=== PATIENT | male | born 1980 | race Caucasian/White ===

== ENCOUNTER 2016-08-24 09:53 | Outpatient (CLI) | payer MEDICAID | END 2016-08-24 09:54 | disposition home or self-care (01) | DX: E11.9 Type 2 diabetes mellitus without complications (principal) ==

== ENCOUNTER 2017-10-23 09:11 | Outpatient (CLI) | payer MEDICAID ==
--- NOTE | 2017-10-24 08:28 | XRAY Report ---
Procedure Date: 10/23/2017 Accession Number: [id number] / [id number] Procedure: XRN - Toe(s) RT CPT Code: FULL RESULT: EXAM: Fourth Toe(s) RT DATE: 10/23/2017 9:35 AM CLINICAL HISTORY: JOINT PAIN COMPARISON: None TECHNIQUE: AP, lateral, oblique views of the right fourth toe FINDINGS: There is no evidence of acute fracture. The joint spaces are preserved. No foreign body is seen in the soft tissues. IMPRESSION: Normal right fourth toe.
--- NOTE | 2017-10-24 08:29 | XRAY Report ---
Procedure Date: 10/23/2017 Accession Number: [id number] / [id number] Procedure: XRN - Toe(s) RT CPT Code: FULL RESULT: EXAM: Fifth Toe(s) RT DATE: 10/23/2017 9:35 AM CLINICAL HISTORY: JOINT PAIN COMPARISON: None TECHNIQUE: AP, lateral, oblique views of the right fifth toe FINDINGS: There is no evidence of fracture or dislocation. The joint spaces are preserved. No radiopaque foreign body is seen in the soft tissues. IMPRESSION: Normal right fifth toe.
== END 2017-10-23 09:12 | disposition home or self-care (01) ==
LOC: DI.N 09:11
PROVIDERS: ATTEND Family Medicine
DX: M79.674 Pain in right toe(s) (principal)
CPT/HCPCS: 73660

== ENCOUNTER 2018-04-22 13:37 | Outpatient (CLI) | payer MEDICAID | END 2018-04-22 13:38 | disposition critical access hospital (66) | LOC: EMS 13:37 | PROVIDERS: ATTEND Surgery | DX: R73.09 Other abnormal glucose (principal); R09.89 Other specified symptoms and signs involving the circulatory and respiratory systems; R45.1 Restlessness and agitation | CPT/HCPCS: A0425; A0427 ==

== ENCOUNTER 2018-04-22 14:13 | Inpatient (IN) | payer MEDICAID ==
[2018-04-22] MEDS ORDERED: INSULIN REGULAR HUMAN 100 UNIT/1 ML 10 ML MDV IVP STA (14:35)
[2018-04-22] MEDS ORDERED: INSULIN REGULAR HUMAN 100 UNIT in SODIUM CHLORIDE 0.9% 100ML 99 ML IV STA (14:35)
[2018-04-22 14:37] LABS: BASOPHILS # (AUTO) 0.2 10^3/uL (0.0-0.1); BASOPHILS % (AUTO) 1.8 %; HGB - HEMOGLOBIN 15.4 g/dL (14.0-18.0); LYMPHOCYTES # (AUTO) 0.6 10^3/uL (1.5-3.5); LYMPHOCYTES % (AUTO) 4.7 %; MEAN CORPUSCULAR HEMOGLOBIN 28.7 pg (27.0-31.0); MEAN CORPUSCULAR HGB CONC 31.3 g/dL (32.0-36.0); MEAN CORPUSCULAR VOLUME 91.5 fL (80.0-94.0); MEAN PLATELET VOLUME 8.9 fL (7.4-11.4); MONOCYTES # (AUTO) 0.9 10^3/uL (0.0-1.0); MONOCYTES % (AUTO) 6.6 %; NEUTROPHILS # (AUTO) 11.8 10^3/uL (1.5-6.6); NEUTROPHILS % (AUTO) 86.9 %; PLT - PLATELET COUNT 293 10^3/uL (130-450); RED BLOOD COUNT 5.38 10^6/uL (4.70-6.10); RED CELL DISTRIBUTION WIDTH 14.8 % (12.0-15.0); WHITE BLOOD COUNT 13.6 x10^3/uL (4.8-10.8)
--- NOTE | 2018-04-22 14:54 | ED Physician Documentation ---
History of Present Illness - Stated complaint Stated Complaint: CONFUSED - Chief complaint Chief Complaint: Abd Pain - History obtained from History obtained from: Patient - History of Present Illness Timing: How many days ago (3) - Additonal information Additional information: 37-year-old diabetic male has developed nausea vomiting abdominal pain about 3 days ago. He has not been able to eat or drink much of anything and he has become confused. He comes into the emergency department breathing rapidly and with extremely dry mucous membranes. He has been mostly noncompliant with his diabetic regimen and stopped taking insulin about 1 year ago. He has been lackluster on checking his blood sugar and cannot tell me the last check he did. He does state that he has been taking his Glucophage and metformin. He has not seen his doctor in more than 1 year. He does not know what type of diabetes he has. He believes he has lost weight in the past several years. Review of Systems Constitutional: reports: Fatigue, Weight Loss. denies: Fever, Chills Eyes: denies: Decreased vision Ears: denies: Ear pain Nose: denies: Rhinorrhea / runny nose, Congestion Throat: denies: Sore throat Cardiac: denies: Chest pain / pressure, Palpitations Respiratory: reports: Dyspnea. denies: Cough, Hemoptysis, Wheezing GI: reports: Abdominal Pain, Nausea, Vomiting : denies: Dysuria, Frequency Skin: denies: Rash Musculoskeletal: denies: Neck pain, Back pain, Extremity pain PD PAST MEDICAL HISTORY - Past Medical History Cardiovascular: None Respiratory: Asthma Neuro: None Endocrine/Autoimmune: Type 2 diabetes GI: None : None HEENT: None Psych: Anxiety Musculoskeletal: Other - Present Medications Home Medications: Ambulatory Orders Medication Instructions Recorded Confirmed metFORMIN [Glucophage] 0 tab PO 04/22/18 - Allergies Allergies/Adverse Reactions: Allergies Allergy/AdvReac Type Severity Reaction Status Date / Time peanut Allergy Anaphylaxis Verified 04/22/18 14:25 - Social History Does the pt smoke?: No Smoking Status: Never smoker Does the pt drink ETOH?: No Does the pt have substance abuse?: No - Immunizations Immunizations are current?: Yes - POLST Patient has POLST: No PD ED PE NORMAL - Vitals Vital signs reviewed: Yes (hypertensive ) - General General: Well developed/nourished, Other (37 y/o thin pale male with cushmal breathing can barely keep his eyes open and answers questions appropriately but incompletely. ) - HEENT HEENT: Atraumatic, PERRL, EOMI, Other (The right TM is obscured by cerumen the left is erythematous with rounding of the landmarks. The mucous membranes are extremely dry/parched and there is blood on the gums and soft pallet. There is a broken right upper molar. ) - Neck Neck: Supple, no meningeal sign, No bony TTP - Cardiac Cardiac: RRR, No murmur - Respiratory Respiratory: Clear bilaterally, Other (tachypneic at rest ) - Abdomen Abdomen: Soft, Non tender, Other (thin ) - Back Back: No CVA TTP, No spinal TTP - Derm Derm: Normal color, Warm and dry, No rash - Extremities Extremities: No deformity, No edema - Neuro Neuro: Alert and oriented X 3, student dean 2-12 intact, No motor deficit, No sensory deficit, Normal speech Eye Opening: Spontaneous Motor: Obeys Commands Verbal: Oriented GCS Score: 15 - Psych Psych: Other (mood is withdrawn and the affect is flat) Results - Vitals Vitals: Vital Signs - 24 hr 04/22/18 04/22/18 04/22/18 14:19 15:05 15:47 Temperature 36.4 C L Heart Rate 93 96 97 Respiratory 22 18 25 H Rate Blood Pressure 155/88 H 159/93 H 141/95 H O2 Saturation 100 100 100 Oxygen O2 Source Room air - Labs Labs: Laboratory Tests 04/22/18 04/22/18 04/22/18 14:30 14:30 14:30 WBC 13.6 H RBC 5.38 Hgb 15.4 Hct 49.2 MCV 91.5 MCH 28.7 MCHC 31.3 L RDW 14.8 Plt Count 293 MPV 8.9 Neut # (Auto) 11.8 H Lymph # (Auto) 0.6 L [place] # (Auto) 0.9 Eos # (Auto) 0.0 Baso # (Auto) 0.2 H Absolute Nucleated RBC 0.00 Band Neuts % (Manual) Not Reportable Abnorm Lymph % (Manual) Not Reportable Nucleated RBC % 0.0 Neutrophils # (Manual) Not Reportable Lymphocytes # (Manual) Not Reportable Monocytes # (Manual) Not Reportable Eosinophils # (Manual) Not Reportable Basophils # (Manual) Not Reportable Differential Comment MANUAL=AUTO DIFF VBG pH VBG pCO2 VBG pO2 VBG HCO3 VBG Total CO2 VBG O2 Saturation VBG Base Excess Sodium 127 L Potassium 4.0 Chloride 103 Carbon Dioxide < 6 L* Anion Gap 18.0 H BUN 17 Creatinine 1.1 Estimated GFR (MDRD) 75 L Glucose 413 H Calcium 8.4 L Total Bilirubin 1.9 H AST 16 ALT 25 Alkaline Phosphatase 160 H Total Protein 7.4 Albumin 4.3 Globulin 3.1 Albumin/Globulin Ratio 1.4 Lipase 23 Serum Ketones MODERATE H 04/22/18 15:04 WBC RBC Hgb Hct MCV MCH MCHC RDW Plt Count MPV Neut # (Auto) Lymph # (Auto) [place] # (Auto) Eos # (Auto) Baso # (Auto) Absolute Nucleated RBC Band Neuts % (Manual) Abnorm Lymph % (Manual) Nucleated RBC % Neutrophils # (Manual) Lymphocytes # (Manual) Monocytes # (Manual) Eosinophils # (Manual) Basophils # (Manual) Differential Comment VBG pH 6.809 L VBG pCO2 19.7 L VBG pO2 46.4 VBG HCO3 3.1 L VBG Total CO2 3.7 L VBG O2 Saturation 77.8 VBG Base Excess -31.0 L Sodium Potassium Chloride Carbon Dioxide Anion Gap BUN Creatinine Estimated GFR (MDRD) Glucose Calcium Total Bilirubin AST ALT Alkaline Phosphatase Total Protein Albumin Globulin Albumin/Globulin Ratio Lipase Serum Ketones Procedures - IVC sono (time) 1450 Bedside IVC sono: IVC measures (cm) (0.93 after one liter), IVC collapsed c insp (cm) (complete), Dehydration (est 2 liter deficit remaining after one liter in.) PD MEDICAL DECISION MAKING - ED course Complexity details: reviewed old records, reviewed results, re-evaluated patient, considered differential, d/w patient ED course: 37 y/o male diabetic with cushmal breathing, significant dehydration and confusion appears to be in DKA on initial evaluation. IV saline is continued and he is administered IV insulin and placed on an insulin drip. He has some improvement in his breathing with fluid. He appears to be in DKA on his labs and the hospitalist is contacted for admission . Departure - Departure Disposition: 66 [facility] DC/Xfer Clinical Impression: Diabetic ketoacidosis Qualifiers: Diabetes mellitus type: other specified (including TANNER) Diabetes mellitus complication detail: without coma Qualified Code(s): E13.10 - Other specified diabetes mellitus with ketoacidosis without coma Otitis media Qualifiers: Otitis media type: suppurative Chronicity: acute Laterality: left Recurrence: not specified as recurrent Spontaneous tympanic membrane rupture: without spontaneous rupture Qualified Code(s): H66.002 - Acute suppurative otitis media without spontaneous rupture of ear drum, left ear
[2018-04-22 14:59] LABS: DIFFERENTIAL COMMENT MANUAL=AUTO DIFF
[2018-04-22 15:14] LABS: VBG PCO2 19.7 mmHg (41-51); VBG PH 6.809 (7.31-7.41); VBG PO2 46.4 mmHg (25-47); VBG TOTAL CO2 3.7 mmol/L (24-29)
[2018-04-22] MEDS ORDERED: SODIUM CHLORIDE 0.9% 1,000 ML IV ONE ×3 (15:15→15:52)
[2018-04-22 15:50] LABS: ALBUMIN 4.3 g/dL (3.2-5.5); ALBUMIN/GLOBULIN RATIO 1.4 (1.0-2.2); ALKALINE PHOSPHATASE 160 IU/L (42-121); ALT ALANINE AMINOTRANSFERASE 25 IU/L (10-60); AST ASPARTATE AMINOTRANSFERASE 16 IU/L (10-42); BILIRUBIN,TOTAL 1.9 mg/dL (0.2-1.0); BUN - BLOOD UREA NITROGEN 17 mg/dL (6-20); CALCIUM 8.4 mg/dL (8.5-10.3); CHLORIDE 103 mmol/L (101-111); CREATININE 1.1 mg/dL (0.6-1.2); GFR - MDRD 75 (>89); GLUCOSE 413 mg/dL (70-100); LIPASE 23 U/L (22-51); SODIUM 127 mmol/L (135-145); TOTAL PROTEIN 7.4 g/dL (6.7-8.2)
[2018-04-22 15:51] LABS: CARBON DIOXIDE - CO2 < 6 mmol/L (21-32)
[2018-04-22] MEDS ORDERED: cefTRIAXone 1 GM in SODIUM CHLORIDE 0.9% MINIBAG 100 ML IV STA (15:55)
[2018-04-22] MEDS ORDERED: SODIUM CHLORIDE 0.9% 100ML 100 ML IV ONE (16:23)
[2018-04-22] MEDS ORDERED: HYDROmorphone 0.5 MG/0.5 ML SYRINGE IVP PRN (17:45)
[2018-04-22] MEDS ORDERED: SODIUM CHLORIDE FLUSH 0.9% 10 ML SYRINGE IVP PRN (17:45)
[2018-04-22] MEDS ORDERED: PROCHLORPERAZINE 10 MG/2 ML VIAL IVP PRN (17:45)
[2018-04-22] MEDS ORDERED: INSULIN REGULAR HUMAN 100 UNIT in SODIUM CHLORIDE 0.9% 100ML 99 ML IV SCH (18:00)
[2018-04-22 18:21] LABS: BILIRUBIN,URINE NEGATIVE (NEGATIVE); GLUCOSE, URINE (UA) >=1000 mg/dL (NEGATIVE); KETONES,URINE (UA) >=80 mg/dL (NEGATIVE); LEUKOCYTE ESTERASE, URINE NEGATIVE (NEGATIVE); NITRITE,URINE NEGATIVE (NEGATIVE); OCCULT BLOOD,URINE SMALL (NEGATIVE); PROTEIN,URINE 30 mg/dL (NEGATIVE); UROBILINOGEN,URINE 0.2 (NORMAL) E.U./dL (NORMAL)
[2018-04-22 18:29] LABS: BACTERIA,URINE None Seen /HPF (None Seen); CASTS, URINE 3-5 Granular Casts /LPF; CLARITY,URINE CLEAR (CLEAR); RBC,URINE 0-5 /HPF (0-5); SQUAMOUS EPITHELIAL CELL,UR RARE Squamous (<= Few)
[2018-04-22 18:37] LABS: KETONES, SERUM (ACETEST) MODERATE (NEGATIVE)
[2018-04-22 18:38] LABS: BUN - BLOOD UREA NITROGEN 17 mg/dL (6-20); CALCIUM 7.2 mg/dL (8.5-10.3); CHLORIDE 107 mmol/L (101-111); CREATININE 0.9 mg/dL (0.6-1.2); GFR - MDRD 94 (>89); GLUCOSE 250 mg/dL (70-100); MAGNESIUM 1.5 mg/dL (1.7-2.8); SODIUM 127 mmol/L (135-145)
[2018-04-22 18:39] LABS: VBG BASE EXCESS -27.1 mmol/L (-2 - +2); VBG PCO2 16.8 mmHg (41-51); VBG PH 6.95 (7.31-7.41); VBG PO2 67.7 mmHg (25-47); VBG TOTAL CO2 4.1 mmol/L (24-29)
[2018-04-22 18:40] LABS: CARBON DIOXIDE - CO2 < 6 mmol/L (21-32)
[2018-04-22 19:03] LABS: LDL CHOLESTEROL,DIRECT 165 mg/dL
[2018-04-22 20:23] LABS: BUN - BLOOD UREA NITROGEN 16 mg/dL (6-20); CALCIUM 7.5 mg/dL (8.5-10.3); CARBON DIOXIDE - CO2 < 6 mmol/L (21-32); CHLORIDE 107 mmol/L (101-111); GFR - MDRD 84 (>89); GLUCOSE 219 mg/dL (70-100); MAGNESIUM 1.6 mg/dL (1.7-2.8); SODIUM 128 mmol/L (135-145)
[2018-04-22 20:26] LABS: KETONES, SERUM (ACETEST) MODERATE (NEGATIVE)
[2018-04-22] MEDS ORDERED: INSULIN GLARGINE 300 UNIT/3 ML PEN SUBQ SCH (21:06)
[2018-04-22 21:38] LABS: HB2 TOTAL 16.7 g/dL; HEMOGLOBIN A1C 2.88 g/dL; HEMOGLOBIN A1C % 17.9 % (4.6-6.2)
[2018-04-22] MEDS: SODIUM CHLORIDE FLUSH 0.9% 10 ML SYRINGE IVP SCH (21:50)
[2018-04-22] MEDS: AMOX/CLAV 875 MG/125 MG TABLET PO SCH (21:50)
[2018-04-22] MEDS: PANTOPRAZOLE 40 MG VIAL IVP SCH (21:50)
[2018-04-22] MEDS: SODIUM CHLORIDE 0.9% 1,000 ML IV SCH (21:50)
[2018-04-22 22:04] LABS: KETONES, SERUM (ACETEST) SMALL (NEGATIVE)
[2018-04-22 22:16] LABS: BUN - BLOOD UREA NITROGEN 14 mg/dL (6-20); CALCIUM 7.9 mg/dL (8.5-10.3); CHLORIDE 109 mmol/L (101-111); CREATININE 0.9 mg/dL (0.6-1.2); GFR - MDRD 94 (>89); GLUCOSE 174 mg/dL (70-100); MAGNESIUM 1.4 mg/dL (1.7-2.8); SODIUM 130 mmol/L (135-145)
--- NOTE | 2018-04-22 22:17 | HISTORY & PHYSICAL EXAMINATION ---
DATE OF SERVICE: 04/22/2018 Physician: Kriss Corado MD HISTORY OF PRESENT ILLNESS: This is a 37-year-old white male with a history of diabetes, he does not know which type, he has been on metformin and approximately a year ago stopped using insulin. He has not seen his doctor in a year. He does not do routine fingerstick glucose checks. The patient presented with a several day history of fatigue, shortness of breath with rapid respirations, and stated that he was nauseated and vomiting, has been losing weight and has poor appetite. He was found to be in DKA on workup in the ER. PAST MEDICAL HISTORY: Diabetes, noncompliance to medication treatment. REVIEW OF SYSTEMS: A comprehensive review of systems was performed and the pertinent positives are in the HPI, the rest are negative. FAMILY HISTORY: No inherited diseases. SOCIAL HISTORY: The patient is a nonsmoker, who never smoked, does not drink alcohol and denies any illicit drug use. MEDICATIONS: Only Metformin, unknown dose b.i.d. ALLERGIES: PEANUTS. PHYSICAL EXAMINATION GENERAL: Lethargic appearing white male, he has significant Kussmaul respirations consistent with his DKA. VITAL SIGNS: Blood pressure 150/90, heart rate 103 and sinus tachycardia, respiratory rate 25, room air saturation 100%. HEENT: Reveals redness of the left tympanic membrane, very dry oral mucosa, cracked lips, poor dentition, dried blood on his lips and palate. NECK: Supple with no JVD or carotid bruits. LUNGS: Clear. HEART: Heart sounds are normal. No murmur, but tachycardic. ABDOMEN: Soft, nontender. No organomegaly. Decreased bowel sounds. No guarding or rebound. EXTREMITIES: No edema. No clubbing or cyanosis. No rash, mild skin tenting. NEUROLOGIC: He is lethargic, but grossly intact. No focal findings. LABORATORY DATA: Sodium 127, potassium 4.0, BUN 17, creatinine 1.1, anion gap is 18, glucose 413, pH is 6.8. Normal AST and ALT, bilirubin 1.9, lipase normal. White blood count 30.6 with a left shift, hemoglobin 15.4, platelet count normal at 293. His serum labs show moderate serum ketones. Urinalysis has high specific gravity of greater than 1.03 with high protein, high glucose, high ketones, rare white cells and no bacteria. No imaging was done. No EKG was done. IMPRESSION/DIAGNOSES 1. Diabetic ketoacidosis. 2. Left-sided otitis media. 3. Dehydration. 4. Noncompliance with medications. PLAN: Admit patient to the ICU on telemetry. Begin a DKA bundle including aggressive IV hydration, IV insulin drip, titrating this with close lab draws and fingerstick checks. Use antiemetics if needed. Start with a clear liquid diet and advance as tolerated. The patient will need diabetic teaching and arrangements for followup with a PCP. Treat his otitis media with antibiotics; Ceftriaxone was given in the ER x1, we will start Augmentin since it has good bioavailability, this was checked with the pharmacist here. CODE STATUS: FULL CODE. DEEP VENOUS THROMBOSIS PROPHYLAXIS: SCDs. ATTESTATION: The patient is expected to be discharged or transferred to another facility within 96 hours: Yes. cc: Jordan Hadley MD TD: 04/22/2018 19:48 MTDD
[2018-04-22 22:19] LABS: CARBON DIOXIDE - CO2 6 mmol/L (21-32)
[2018-04-23] MEDS: SODIUM CHLORIDE 0.9% 1,000 ML IV SCH ×2 (01:59→05:57)
[2018-04-23 02:11] LABS: MUDS CUTOFF CONCENTRATIONS CUTOFF CONC BELOW:
[2018-04-23 02:25] LABS: AMPHETAMINE SCREEN,URINE NEGATIVE (NEGATIVE); BENZODIAZEPINES SCREEN, URINE NEGATIVE (NEGATIVE); COCAINE SCREEN URINE NEGATIVE (NEGATIVE); METHADONE SCREEN, URINE NEGATIVE (NEGATIVE); METHAMPHETAMINES SCREEN, URINE NEGATIVE (NEGATIVE); OPIATE SCREEN, URINE NEGATIVE (NEGATIVE); OXYCODONE SCREEN, URINE NEGATIVE (NEGATIVE); PROPOXYPHENE SCREEN, URINE NEGATIVE (NEGATIVE); TRICYCLIC ANTIDEPRESSANT,URINE NEGATIVE (NEGATIVE)
[2018-04-23 04:06] LABS: BASOPHILS # (AUTO) 0.1 10^3/uL (0.0-0.1); BASOPHILS % (AUTO) 0.8 %; HGB - HEMOGLOBIN 13.1 g/dL (14.0-18.0); LYMPHOCYTES # (AUTO) 0.6 10^3/uL (1.5-3.5); LYMPHOCYTES % (AUTO) 6.8 %; MEAN CORPUSCULAR HEMOGLOBIN 28.2 pg (27.0-31.0); MEAN CORPUSCULAR HGB CONC 32.6 g/dL (32.0-36.0); MEAN CORPUSCULAR VOLUME 86.6 fL (80.0-94.0); MEAN PLATELET VOLUME 8.2 fL (7.4-11.4); MONOCYTES # (AUTO) 0.8 10^3/uL (0.0-1.0); MONOCYTES % (AUTO) 9.6 %; NEUTROPHILS % (AUTO) 82.8 %; PLT - PLATELET COUNT 238 10^3/uL (130-450); RED BLOOD COUNT 4.65 10^6/uL (4.70-6.10); RED CELL DISTRIBUTION WIDTH 14.1 % (12.0-15.0); WHITE BLOOD COUNT 8.5 x10^3/uL (4.8-10.8)
[2018-04-23 04:19] LABS: CALCIUM 7.5 mg/dL (8.5-10.3); CREATININE 0.8 mg/dL (0.6-1.2); MAGNESIUM 1.5 mg/dL (1.7-2.8); PHOSPHORUS 1.6 mg/dL (2.5-4.6)
[2018-04-23] MEDS: MAGNESIUM OXIDE 400 MG TABLET PO SCH ×2 (04:27→10:12)
[2018-04-23] MEDS: POTASSIUM CHLORIDE 20 MEQ TABLET PO SCH ×2 (04:27→08:23)
[2018-04-23 06:12] LABS: VBG PH 7.268 (7.31-7.41)
[2018-04-23] MEDS ORDERED: INSULIN ASPART 300 UNIT/3 ML PEN SUBQ SCH (08:00)
[2018-04-23] MEDS ORDERED: INSULIN GLARGINE 300 UNIT/3 ML PEN SUBQ ONE (08:10)
--- NOTE | 2018-04-23 08:13 | PROVIDER PROGRESS NOTE ---
Subjective - Prog Note Date Prog Note Date: 04/23/18 Prog Note Time: 08:10 - Subjective Pt reports feeling: Improved Subjective: He is off the insulin drip since last night. This morning nursing reports that his glucose is 191. Received 10 units of Lantus last night. Between last night and this morning was 191, his glucose was in the 240s. Bicarb is improving but still low. Still has an anion gap. I queried him as to what happened a year ago that he stopped taking his insulin and stopped Seeing a primary care provider. He says he does not really have a good reason. I asked him if he has any specific philosophy of life that I need to know about. He says not really. He has not thought much about his illness. He has not taken it very seriously. With this episode he thinks he is going to probably have start taking it a lot more seriously. He has had diabetes since the age of 35. When he was checking his sugars in the last year, only on metformin, glucose was in the 180s. He denies any change in vision, peripheral neuropathy. He is from [place]. Been living on the [place] a [place]. 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 There is some type of legal matter going on with the job so he does not have much work right now. The legal matter has to do with his boss and another employee not him. So he has not worked for about 3-1/2 months. He also does not have insurance, his sister is signed him up for one with this admission. So he thinks he may be covered after this admission. He is to see [facility]. It has been about a year. Current Medications - Current Medications Current Medications: Active Medications Amoxicillin/Clavulanate Potassium (Augmentin 875/125) 1 tab PO BID [facility] Last Admin: 04/22/18 21:50 Dose: 1 tab Hydromorphone HCl (Dilaudid Inj Syringe) 0.5 mg IVP Q6H PRN PRN Reason: Pain 8 to 10 Last Admin: 04/23/18 01:11 Dose: 0.5 mg Sodium Chloride (Normal Saline 0.9%) 1,000 mls @ 250 mls/hr IV .Q4H [facility] Last Admin: 04/23/18 05:57 Dose: 250 mls/hr Insulin Aspart (Novolog) 1 - 9 unit SUBQ 0800,1200,1700,2100 [facility]; Protocol Insulin Glargine (Lantus Solostar) 5 unit SUBQ ONCE ONE Stop: 04/23/18 08:11 Insulin Glargine (Lantus Solostar) 15 unit SUBQ QPM [facility] Magnesium Oxide (Mag Ox) 400 mg PO Q6H [facility]; Protocol Stop: 04/23/18 10:01 Last Admin: 04/23/18 04:27 Dose: 400 mg Pantoprazole Sodium (Protonix) 40 mg IVP BID [facility] Last Admin: 04/22/18 21:50 Dose: 40 mg Prochlorperazine Edisylate (Compazine Inj) 10 mg IVP Q6HR PRN PRN Reason: Nausea / Vomiting Sodium Chloride (Normal Saline Flush 0.9%) 10 ml IVP 0100,0900,1700 [facility] Last Admin: 04/22/18 21:50 Dose: 10 ml Sodium Chloride (Normal Saline Flush 0.9%) 10 ml IVP PRN PRN PRN Reason: NEEDED PER PROVIDER ORDERS Last Admin: 04/23/18 01:11 Dose: 10 ml Lisinopril 2.5 mg PO DAILY 04/22/18 metFORMIN [Glucophage] 1,000 mg PO BID 04/22/18 Objective - Vital Signs/Intake & Output Reviewed Vital Signs: Yes Vital Signs: Vital Signs Pulse Resp BP Pulse Ox 04/23/18 07:00 96 16 124/72 99 04/23/18 06:00 86 16 116/66 100 04/23/18 05:00 101 H 18 107/66 98 Intake & Output: Intake & Output 04/20/18 04/21/18 04/22/18 04/23/18 23:59 23:59 23:59 23:59 Intake Total 4084.933 3951.667 Output Total 2900 3500 Balance 1184.933 451.667 - Objective General Appearance: positive: No acute distress, Alert, Other (Slender white male, looks malnourished. Sleepy, woken up and a little slow to respond initially.) Eyes Bilateral: positive: PERRL, EOMI ENT: positive: Dry mucous membranes Neck: positive: No JVD. negative: Stiff neck, Carotid bruit Respiratory: positive: Chest non-tender. negative: Wheezes, Rales, Rhonchi Cardiovascular: positive: Regular rate & rhythm. negative: Systolic murmur, Gallop/S4, Friction rub Abdomen: positive: Non-tender, No organomegaly, Nml bowel sounds, No distention Skin: positive: Warm, Dry Extremities: positive: Full ROM Neurologic/Psychiatric: positive: Oriented x3, CN's nml (2-12), Motor nml, Sensation nml - Lab Results Fish Bones: 04/23/18 03:57 04/23/18 03:57 Other Labs: Lab Results x24hrs 04/23/18 04/23/18 04/23/18 Range/Units 07:56 05:56 05:56 WBC (4.8-10.8) x10^3/uL RBC (4.70-6.10) 10^6/uL Hgb (14.0-18.0) g/dL Hct (42.0-52.0) % MCV (80.0-94.0) fL MCH (27.0-31.0) pg MCHC (32.0-36.0) g/dL RDW (12.0-15.0) % Plt Count (130-450) 10^3/uL MPV (7.4-11.4) fL Neut # (Auto) (1.5-6.6) 10^3/uL Lymph # (Auto) (1.5-3.5) 10^3/uL Esmeralda # (Auto) (0.0-1.0) 10^3/uL Eos # (Auto) (0.0-0.7) 10^3/uL Baso # (Auto) (0.0-0.1) 10^3/uL Absolute Nucleated RBC x10^3/uL Band Neuts % (Manual) Abnorm Lymph % (Manual) Nucleated RBC % /100WBC Neutrophils # (Manual) Lymphocytes # (Manual) Monocytes # (Manual) Eosinophils # (Manual) Basophils # (Manual) Differential Comment VBG pH 7.268 L (7.31-7.41) VBG pCO2 (41-51) mmHg VBG pO2 (25-47) mmHg VBG HCO3 (23-28) mmol/L VBG Total CO2 (24-29) mmol/L VBG O2 Saturation (60-80) % VBG Base Excess (-2 - +2) mmol/L Ionized Calcium 1.16 (1.15-1.33) mmol/L Sodium (135-145) mmol/L Potassium (3.5-5.0) mmol/L Chloride (101-111) mmol/L Carbon Dioxide (21-32) mmol/L Anion Gap (6-13) BUN (6-20) mg/dL Creatinine (0.6-1.2) mg/dL Estimated GFR (MDRD) (>89) Glucose (70-100) mg/dL Glycated Hemoglobin (4.6-6.2) % Estim Average Glucose (70-100) Calcium (8.5-10.3) mg/dL Phosphorus (2.5-4.6) mg/dL Magnesium (1.7-2.8) mg/dL Total Bilirubin (0.2-1.0) mg/dL AST (10-42) IU/L ALT (10-60) IU/L Alkaline Phosphatase (42-121) IU/L Troponin I (<0.49) ng/mL Total Protein (6.7-8.2) g/dL Albumin 3.2 (3.2-5.5) g/dL Globulin (2.1-4.2) g/dL Albumin/Globulin Ratio (1.0-2.2) Triglycerides ( - 149) mg/dL LDL Cholesterol Direct ( - 129) mg/dL dLDL/HDL Ratio Lipase (22-51) U/L Urine Color Urine Clarity (CLEAR) Urine pH (5.0-7.5) PH Ur Specific [place] (1.002-1.030) Urine Protein (NEGATIVE) mg/dL Urine Glucose (UA) (NEGATIVE) mg/dL Urine Ketones (NEGATIVE) mg/dL Urine Occult Blood (NEGATIVE) Urine Nitrite (NEGATIVE) Urine Bilirubin (NEGATIVE) Urine Urobilinogen (NORMAL) E.U./dL Ur Leukocyte Esterase (NEGATIVE) Urine RBC (0-5) /HPF Urine WBC (0-3) /HPF Ur Squamous Epith Cells (<= Few) Urine Bacteria (None Seen) /HPF Urine Casts /LPF Ur Microscopic Review Urine Culture Comments Salicylates mg/dL Urine Opiates Screen (NEGATIVE) Ur Oxycodone Screen (NEGATIVE) Urine Methadone Screen (NEGATIVE) Ur Propoxyphene Screen (NEGATIVE) Ur Barbiturates Screen (NEGATIVE) Ur Tricyclics Screen (NEGATIVE) Ur Phencyclidine Scrn (NEGATIVE) Ur Amphetamine Screen (NEGATIVE) U Methamphetamines Scrn (NEGATIVE) U Benzodiazepines Scrn (NEGATIVE) Urine Cocaine Screen (NEGATIVE) U Cannabinoids Screen (NEGATIVE) Serum Ketones SMALL H (NEGATIVE) 04/23/18 04/23/18 04/23/18 Range/Units 05:56 05:56 03:57 WBC (4.8-10.8) x10^3/uL RBC (4.70-6.10) 10^6/uL Hgb (14.0-18.0) g/dL Hct (42.0-52.0) % MCV (80.0-94.0) fL MCH (27.0-31.0) pg MCHC (32.0-36.0) g/dL RDW (12.0-15.0) % Plt Count (130-450) 10^3/uL MPV (7.4-11.4) fL Neut # (Auto) (1.5-6.6) 10^3/uL Lymph # (Auto) (1.5-3.5) 10^3/uL Esmeralda # (Auto) (0.0-1.0) 10^3/uL Eos # (Auto) (0.0-0.7) 10^3/uL Baso # (Auto) (0.0-0.1) 10^3/uL Absolute Nucleated RBC x10^3/uL Band Neuts % (Manual) Abnorm Lymph % (Manual) Nucleated RBC % /100WBC Neutrophils # (Manual) Lymphocytes # (Manual) Monocytes # (Manual) Eosinophils # (Manual) Basophils # (Manual) Differential Comment VBG pH (7.31-7.41) VBG pCO2 (41-51) mmHg VBG pO2 (25-47) mmHg VBG HCO3 (23-28) mmol/L VBG Total CO2 (24-29) mmol/L VBG O2 Saturation (60-80) % VBG Base Excess (-2 - +2) mmol/L Ionized Calcium (1.15-1.33) mmol/L Sodium (135-145) mmol/L Potassium (3.5-5.0) mmol/L Chloride (101-111) mmol/L Carbon Dioxide (21-32) mmol/L Anion Gap (6-13) BUN (6-20) mg/dL Creatinine (0.6-1.2) mg/dL Estimated GFR (MDRD) (>89) Glucose (70-100) mg/dL Glycated Hemoglobin (4.6-6.2) % Estim Average Glucose (70-100) Calcium (8.5-10.3) mg/dL Phosphorus (2.5-4.6) mg/dL Magnesium (1.7-2.8) mg/dL Total Bilirubin (0.2-1.0) mg/dL AST (10-42) IU/L ALT (10-60) IU/L Alkaline Phosphatase (42-121) IU/L Troponin I < 0.04 (<0.49) ng/mL Total Protein (6.7-8.2) g/dL Albumin (3.2-5.5) g/dL Globulin (2.1-4.2) g/dL Albumin/Globulin Ratio (1.0-2.2) Triglycerides ( - 149) mg/dL LDL Cholesterol Direct ( - 129) mg/dL dLDL/HDL Ratio Lipase (22-51) U/L Urine Color Urine Clarity (CLEAR) Urine pH (5.0-7.5) PH Ur Specific [place] (1.002-1.030) Urine Protein (NEGATIVE) mg/dL Urine Glucose (UA) (NEGATIVE) mg/dL Urine Ketones (NEGATIVE) mg/dL Urine Occult Blood (NEGATIVE) Urine Nitrite (NEGATIVE) Urine Bilirubin (NEGATIVE) Urine Urobilinogen (NORMAL) E.U./dL Ur Leukocyte Esterase (NEGATIVE) Urine RBC (0-5) /HPF Urine WBC (0-3) /HPF Ur Squamous Epith Cells (<= Few) Urine Bacteria (None Seen) /HPF Urine Casts /LPF Ur Microscopic Review Urine Culture Comments Salicylates mg/dL Urine Opiates Screen (NEGATIVE) Ur Oxycodone Screen (NEGATIVE) Urine Methadone Screen (NEGATIVE) Ur Propoxyphene Screen (NEGATIVE) Ur Barbiturates Screen (NEGATIVE) Ur Tricyclics Screen (NEGATIVE) Ur Phencyclidine Scrn (NEGATIVE) Ur Amphetamine Screen (NEGATIVE) U Methamphetamines Scrn (NEGATIVE) U Benzodiazepines Scrn (NEGATIVE) Urine Cocaine Screen (NEGATIVE) U Cannabinoids Screen (NEGATIVE) Serum Ketones SMALL H SMALL H (NEGATIVE) 04/23/18 04/23/18 04/23/18 Range/Units 03:57 03:57 02:04 WBC 8.5 (4.8-10.8) x10^3/uL RBC 4.65 L (4.70-6.10) 10^6/uL Hgb 13.1 L (14.0-18.0) g/dL Hct 40.2 L (42.0-52.0) % MCV 86.6 (80.0-94.0) fL MCH 28.2 (27.0-31.0) pg MCHC 32.6 (32.0-36.0) g/dL RDW 14.1 (12.0-15.0) % Plt Count 238 (130-450) 10^3/uL MPV 8.2 (7.4-11.4) fL Neut # (Auto) 7.0 H (1.5-6.6) 10^3/uL Lymph # (Auto) 0.6 L (1.5-3.5) 10^3/uL Esmeralda # (Auto) 0.8 (0.0-1.0) 10^3/uL Eos # (Auto) 0.0 (0.0-0.7) 10^3/uL Baso # (Auto) 0.1 (0.0-0.1) 10^3/uL Absolute Nucleated RBC 0.00 x10^3/uL Band Neuts % (Manual) Abnorm Lymph % (Manual) Nucleated RBC % 0.0 /100WBC Neutrophils # (Manual) Lymphocytes # (Manual) Monocytes # (Manual) Eosinophils # (Manual) Basophils # (Manual) Differential Comment VBG pH (7.31-7.41) VBG pCO2 (41-51) mmHg VBG pO2 (25-47) mmHg VBG HCO3 (23-28) mmol/L VBG Total CO2 (24-29) mmol/L VBG O2 Saturation (60-80) % VBG Base Excess (-2 - +2) mmol/L Ionized Calcium (1.15-1.33) mmol/L Sodium 131 L (135-145) mmol/L Potassium 2.7 L (3.5-5.0) mmol/L Chloride 110 (101-111) mmol/L Carbon Dioxide 11 L* (21-32) mmol/L Anion Gap 10.0 (6-13) BUN 12 (6-20) mg/dL Creatinine 0.8 (0.6-1.2) mg/dL Estimated GFR (MDRD) 108 (>89) Glucose 271 H (70-100) mg/dL Glycated Hemoglobin (4.6-6.2) % Estim Average Glucose (70-100) Calcium 7.5 L (8.5-10.3) mg/dL Phosphorus 1.6 L (2.5-4.6) mg/dL Magnesium 1.5 L (1.7-2.8) mg/dL Total Bilirubin (0.2-1.0) mg/dL AST (10-42) IU/L ALT (10-60) IU/L Alkaline Phosphatase (42-121) IU/L Troponin I (<0.49) ng/mL Total Protein (6.7-8.2) g/dL Albumin (3.2-5.5) g/dL Globulin (2.1-4.2) g/dL Albumin/Globulin Ratio (1.0-2.2) Triglycerides ( - 149) mg/dL LDL Cholesterol Direct ( - 129) mg/dL dLDL/HDL Ratio Lipase (22-51) U/L Urine Color Urine Clarity (CLEAR) Urine pH (5.0-7.5) PH Ur Specific [place] (1.002-1.030) Urine Protein (NEGATIVE) mg/dL Urine Glucose (UA) (NEGATIVE) mg/dL Urine Ketones (NEGATIVE) mg/dL Urine Occult Blood (NEGATIVE) Urine Nitrite (NEGATIVE) Urine Bilirubin (NEGATIVE) Urine Urobilinogen (NORMAL) E.U./dL Ur Leukocyte Esterase (NEGATIVE) Urine RBC (0-5) /HPF Urine WBC (0-3) /HPF Ur Squamous Epith Cells (<= Few) Urine Bacteria (None Seen) /HPF Urine Casts /LPF Ur Microscopic Review Urine Culture Comments Salicylates mg/dL Urine Opiates Screen (NEGATIVE) Ur Oxycodone Screen (NEGATIVE) Urine Methadone Screen (NEGATIVE) Ur Propoxyphene Screen (NEGATIVE) Ur Barbiturates Screen (NEGATIVE) Ur Tricyclics Screen (NEGATIVE) Ur Phencyclidine Scrn (NEGATIVE) Ur Amphetamine Screen (NEGATIVE) U Methamphetamines Scrn (NEGATIVE) U Benzodiazepines Scrn (NEGATIVE) Urine Cocaine Screen (NEGATIVE) U Cannabinoids Screen (NEGATIVE) Serum Ketones SMALL H (NEGATIVE) 04/23/18 04/22/18 04/22/18 Range/Units 00:02 23:30 21:50 WBC (4.8-10.8) x10^3/uL RBC (4.70-6.10) 10^6/uL Hgb (14.0-18.0) g/dL Hct (42.0-52.0) % MCV (80.0-94.0) fL MCH (27.0-31.0) pg MCHC (32.0-36.0) g/dL RDW (12.0-15.0) % Plt Count (130-450) 10^3/uL MPV (7.4-11.4) fL Neut # (Auto) (1.5-6.6) 10^3/uL Lymph # (Auto) (1.5-3.5) 10^3/uL Esmeralda # (Auto) (0.0-1.0) 10^3/uL Eos # (Auto) (0.0-0.7) 10^3/uL Baso # (Auto) (0.0-0.1) 10^3/uL Absolute Nucleated RBC x10^3/uL Band Neuts % (Manual) Abnorm Lymph % (Manual) Nucleated RBC % /100WBC Neutrophils # (Manual) Lymphocytes # (Manual) Monocytes # (Manual) Eosinophils # (Manual) Basophils # (Manual) Differential Comment VBG pH (7.31-7.41) VBG pCO2 (41-51) mmHg VBG pO2 (25-47) mmHg VBG HCO3 (23-28) mmol/L VBG Total CO2 (24-29) mmol/L VBG O2 Saturation (60-80) % VBG Base Excess (-2 - +2) mmol/L Ionized Calcium (1.15-1.33) mmol/L Sodium 130 L (135-145) mmol/L Potassium 2.8 L (3.5-5.0) mmol/L Chloride 109 (101-111) mmol/L Carbon Dioxide 6 L* (21-32) mmol/L Anion Gap 15.0 H (6-13) BUN 14 (6-20) mg/dL Creatinine 0.9 (0.6-1.2) mg/dL Estimated GFR (MDRD) 94 (>89) Glucose 174 H (70-100) mg/dL Glycated Hemoglobin (4.6-6.2) % Estim Average Glucose (70-100) Calcium 7.9 L (8.5-10.3) mg/dL Phosphorus (2.5-4.6) mg/dL Magnesium 1.4 L (1.7-2.8) mg/dL Total Bilirubin (0.2-1.0) mg/dL AST (10-42) IU/L ALT (10-60) IU/L Alkaline Phosphatase (42-121) IU/L Troponin I (<0.49) ng/mL Total Protein (6.7-8.2) g/dL Albumin (3.2-5.5) g/dL Globulin (2.1-4.2) g/dL Albumin/Globulin Ratio (1.0-2.2) Triglycerides ( - 149) mg/dL LDL Cholesterol Direct ( - 129) mg/dL dLDL/HDL Ratio Lipase (22-51) U/L Urine Color Urine Clarity (CLEAR) Urine pH (5.0-7.5) PH Ur Specific [place] (1.002-1.030) Urine Protein (NEGATIVE) mg/dL Urine Glucose (UA) (NEGATIVE) mg/dL Urine Ketones (NEGATIVE) mg/dL Urine Occult Blood (NEGATIVE) Urine Nitrite (NEGATIVE) Urine Bilirubin (NEGATIVE) Urine Urobilinogen (NORMAL) E.U./dL Ur Leukocyte Esterase (NEGATIVE) Urine RBC (0-5) /HPF Urine WBC (0-3) /HPF Ur Squamous Epith Cells (<= Few) Urine Bacteria (None Seen) /HPF Urine Casts /LPF Ur Microscopic Review Urine Culture Comments Salicylates mg/dL Urine Opiates Screen NEGATIVE (NEGATIVE) Ur Oxycodone Screen NEGATIVE (NEGATIVE) Urine Methadone Screen NEGATIVE (NEGATIVE) Ur Propoxyphene Screen NEGATIVE (NEGATIVE) Ur Barbiturates Screen NEGATIVE (NEGATIVE) Ur Tricyclics Screen NEGATIVE (NEGATIVE) Ur Phencyclidine Scrn NEGATIVE (NEGATIVE) Ur Amphetamine Screen NEGATIVE (NEGATIVE) U Methamphetamines Scrn NEGATIVE (NEGATIVE) U Benzodiazepines Scrn NEGATIVE (NEGATIVE) Urine Cocaine Screen NEGATIVE (NEGATIVE) U Cannabinoids Screen NEGATIVE (NEGATIVE) Serum Ketones SMALL H SMALL H (NEGATIVE) 04/22/18 04/22/18 04/22/18 Range/Units 19:46 18:10 18:09 WBC (4.8-10.8) x10^3/uL RBC (4.70-6.10) 10^6/uL Hgb (14.0-18.0) g/dL Hct (42.0-52.0) % MCV (80.0-94.0) fL MCH (27.0-31.0) pg MCHC (32.0-36.0) g/dL RDW (12.0-15.0) % Plt Count (130-450) 10^3/uL MPV (7.4-11.4) fL Neut # (Auto) (1.5-6.6) 10^3/uL Lymph # (Auto) (1.5-3.5) 10^3/uL Esmeralda # (Auto) (0.0-1.0) 10^3/uL Eos # (Auto) (0.0-0.7) 10^3/uL Baso # (Auto) (0.0-0.1) 10^3/uL Absolute Nucleated RBC x10^3/uL Band Neuts % (Manual) Abnorm Lymph % (Manual) Nucleated RBC % /100WBC Neutrophils # (Manual) Lymphocytes # (Manual) Monocytes # (Manual) Eosinophils # (Manual) Basophils # (Manual) Differential Comment VBG pH (7.31-7.41) VBG pCO2 (41-51) mmHg VBG pO2 (25-47) mmHg VBG HCO3 (23-28) mmol/L VBG Total CO2 (24-29) mmol/L VBG O2 Saturation (60-80) % VBG Base Excess (-2 - +2) mmol/L Ionized Calcium (1.15-1.33) mmol/L Sodium 128 L (135-145) mmol/L Potassium 3.1 L (3.5-5.0) mmol/L Chloride 107 (101-111) mmol/L Carbon Dioxide < 6 L* (21-32) mmol/L Anion Gap 15.0 H (6-13) BUN 16 (6-20) mg/dL Creatinine 1.0 (0.6-1.2) mg/dL Estimated GFR (MDRD) 84 L (>89) Glucose 219 H (70-100) mg/dL Glycated Hemoglobin (4.6-6.2) % Estim Average Glucose (70-100) Calcium 7.5 L (8.5-10.3) mg/dL Phosphorus (2.5-4.6) mg/dL Magnesium 1.6 L (1.7-2.8) mg/dL Total Bilirubin (0.2-1.0) mg/dL AST (10-42) IU/L ALT (10-60) IU/L Alkaline Phosphatase (42-121) IU/L Troponin I < 0.04 (<0.49) ng/mL Total Protein (6.7-8.2) g/dL Albumin (3.2-5.5) g/dL Globulin (2.1-4.2) g/dL Albumin/Globulin Ratio (1.0-2.2) Triglycerides ( - 149) mg/dL LDL Cholesterol Direct ( - 129) mg/dL dLDL/HDL Ratio Lipase (22-51) U/L Urine Color LT. YELLOW Urine Clarity CLEAR (CLEAR) Urine pH 5.0 (5.0-7.5) PH Ur Specific [place] >=1.030 H (1.002-1.030) Urine Protein 30 H (NEGATIVE) mg/dL Urine Glucose (UA) >=1000 H (NEGATIVE) mg/dL Urine Ketones >=80 H (NEGATIVE) mg/dL Urine Occult Blood SMALL H (NEGATIVE) Urine Nitrite NEGATIVE (NEGATIVE) Urine Bilirubin NEGATIVE (NEGATIVE) Urine Urobilinogen 0.2 (NORMAL) (NORMAL) E.U./dL Ur Leukocyte Esterase NEGATIVE (NEGATIVE) Urine RBC 0-5 (0-5) /HPF Urine WBC 0-3 (0-3) /HPF Ur Squamous Epith Cells RARE Squamous (<= Few) Urine Bacteria None Seen (None Seen) /HPF Urine Casts 3-5 Granular Casts /LPF Ur Microscopic Review INDICATED Urine Culture Comments NOT INDICATED Salicylates mg/dL Urine Opiates Screen (NEGATIVE) Ur Oxycodone Screen (NEGATIVE) Urine Methadone Screen (NEGATIVE) Ur Propoxyphene Screen (NEGATIVE) Ur Barbiturates Screen (NEGATIVE) Ur Tricyclics Screen (NEGATIVE) Ur Phencyclidine Scrn (NEGATIVE) Ur Amphetamine Screen (NEGATIVE) U Methamphetamines Scrn (NEGATIVE) U Benzodiazepines Scrn (NEGATIVE) Urine Cocaine Screen (NEGATIVE) U Cannabinoids Screen (NEGATIVE) Serum Ketones MODERATE H (NEGATIVE) 04/22/18 04/22/18 04/22/18 Range/Units 18:09 18:09 18:09 WBC (4.8-10.8) x10^3/uL RBC (4.70-6.10) 10^6/uL Hgb (14.0-18.0) g/dL Hct (42.0-52.0) % MCV (80.0-94.0) fL MCH (27.0-31.0) pg MCHC (32.0-36.0) g/dL RDW (12.0-15.0) % Plt Count (130-450) 10^3/uL MPV (7.4-11.4) fL Neut # (Auto) (1.5-6.6) 10^3/uL Lymph # (Auto) (1.5-3.5) 10^3/uL Esmeralda # (Auto) (0.0-1.0) 10^3/uL Eos # (Auto) (0.0-0.7) 10^3/uL Baso # (Auto) (0.0-0.1) 10^3/uL Absolute Nucleated RBC x10^3/uL Band Neuts % (Manual) Abnorm Lymph % (Manual) Nucleated RBC % /100WBC Neutrophils # (Manual) Lymphocytes # (Manual) Monocytes # (Manual) Eosinophils # (Manual) Basophils # (Manual) Differential Comment VBG pH 6.950 L (7.31-7.41) VBG pCO2 16.8 L (41-51) mmHg VBG pO2 67.7 H (25-47) mmHg VBG HCO3 3.6 L (23-28) mmol/L VBG Total CO2 4.1 L (24-29) mmol/L VBG O2 Saturation 93.3 H (60-80) % VBG Base Excess -27.1 L (-2 - +2) mmol/L Ionized Calcium (1.15-1.33) mmol/L Sodium 127 L (135-145) mmol/L Potassium 3.3 L (3.5-5.0) mmol/L Chloride 107 (101-111) mmol/L Carbon Dioxide < 6 L* (21-32) mmol/L Anion Gap 14.0 H (6-13) BUN 17 (6-20) mg/dL Creatinine 0.9 (0.6-1.2) mg/dL Estimated GFR (MDRD) 94 (>89) Glucose Cancelled 250 H (70-100) mg/dL Glycated Hemoglobin (4.6-6.2) % Estim Average Glucose (70-100) Calcium 7.2 L (8.5-10.3) mg/dL Phosphorus (2.5-4.6) mg/dL Magnesium Cancelled 1.5 L (1.7-2.8) mg/dL Total Bilirubin (0.2-1.0) mg/dL AST (10-42) IU/L ALT (10-60) IU/L Alkaline Phosphatase (42-121) IU/L Troponin I (<0.49) ng/mL Total Protein (6.7-8.2) g/dL Albumin (3.2-5.5) g/dL Globulin (2.1-4.2) g/dL Albumin/Globulin Ratio (1.0-2.2) Triglycerides 629 H ( - 149) mg/dL LDL Cholesterol Direct 165 H ( - 129) mg/dL dLDL/HDL Ratio Not Reportable Lipase (22-51) U/L Urine Color Urine Clarity (CLEAR) Urine pH (5.0-7.5) PH Ur Specific [place] (1.002-1.030) Urine Protein (NEGATIVE) mg/dL Urine Glucose (UA) (NEGATIVE) mg/dL Urine Ketones (NEGATIVE) mg/dL Urine Occult Blood (NEGATIVE) Urine Nitrite (NEGATIVE) Urine Bilirubin (NEGATIVE) Urine Urobilinogen (NORMAL) E.U./dL Ur Leukocyte Esterase (NEGATIVE) Urine RBC (0-5) /HPF Urine WBC (0-3) /HPF Ur Squamous Epith Cells (<= Few) Urine Bacteria (None Seen) /HPF Urine Casts /LPF Ur Microscopic Review Urine Culture Comments Salicylates mg/dL Urine Opiates Screen (NEGATIVE) Ur Oxycodone Screen (NEGATIVE) Urine Methadone Screen (NEGATIVE) Ur Propoxyphene Screen (NEGATIVE) Ur Barbiturates Screen (NEGATIVE) Ur Tricyclics Screen (NEGATIVE) Ur Phencyclidine Scrn (NEGATIVE) Ur Amphetamine Screen (NEGATIVE) U Methamphetamines Scrn (NEGATIVE) U Benzodiazepines Scrn (NEGATIVE) Urine Cocaine Screen (NEGATIVE) U Cannabinoids Screen (NEGATIVE) Serum Ketones MODERATE H (NEGATIVE) 04/22/18 04/22/18 04/22/18 Range/Units 15:04 14:40 14:30 WBC (4.8-10.8) x10^3/uL RBC (4.70-6.10) 10^6/uL Hgb (14.0-18.0) g/dL Hct (42.0-52.0) % MCV (80.0-94.0) fL MCH (27.0-31.0) pg MCHC (32.0-36.0) g/dL RDW (12.0-15.0) % Plt Count (130-450) 10^3/uL MPV (7.4-11.4) fL Neut # (Auto) (1.5-6.6) 10^3/uL Lymph # (Auto) (1.5-3.5) 10^3/uL Esmeralda # (Auto) (0.0-1.0) 10^3/uL Eos # (Auto) (0.0-0.7) 10^3/uL Baso # (Auto) (0.0-0.1) 10^3/uL Absolute Nucleated RBC x10^3/uL Band Neuts % (Manual) Abnorm Lymph % (Manual) Nucleated RBC % /100WBC Neutrophils # (Manual) Lymphocytes # (Manual) Monocytes # (Manual) Eosinophils # (Manual) Basophils # (Manual) Differential Comment VBG pH 6.809 L (7.31-7.41) VBG pCO2 19.7 L (41-51) mmHg VBG pO2 46.4 (25-47) mmHg VBG HCO3 3.1 L (23-28) mmol/L VBG Total CO2 3.7 L (24-29) mmol/L VBG O2 Saturation 77.8 (60-80) % VBG Base Excess -31.0 L (-2 - +2) mmol/L Ionized Calcium (1.15-1.33) mmol/L Sodium (135-145) mmol/L Potassium (3.5-5.0) mmol/L Chloride (101-111) mmol/L Carbon Dioxide (21-32) mmol/L Anion Gap (6-13) BUN (6-20) mg/dL Creatinine (0.6-1.2) mg/dL Estimated GFR (MDRD) (>89) Glucose (70-100) mg/dL Glycated Hemoglobin 17.9 H (4.6-6.2) % Estim Average Glucose 467 H (70-100) Calcium (8.5-10.3) mg/dL Phosphorus (2.5-4.6) mg/dL Magnesium (1.7-2.8) mg/dL Total Bilirubin (0.2-1.0) mg/dL AST (10-42) IU/L ALT (10-60) IU/L Alkaline Phosphatase (42-121) IU/L Troponin I (<0.49) ng/mL Total Protein (6.7-8.2) g/dL Albumin (3.2-5.5) g/dL Globulin (2.1-4.2) g/dL Albumin/Globulin Ratio (1.0-2.2) Triglycerides ( - 149) mg/dL LDL Cholesterol Direct ( - 129) mg/dL dLDL/HDL Ratio Lipase (22-51) U/L Urine Color Urine Clarity (CLEAR) Urine pH (5.0-7.5) PH Ur Specific [place] (1.002-1.030) Urine Protein (NEGATIVE) mg/dL Urine Glucose (UA) (NEGATIVE) mg/dL Urine Ketones (NEGATIVE) mg/dL Urine Occult Blood (NEGATIVE) Urine Nitrite (NEGATIVE) Urine Bilirubin (NEGATIVE) Urine Urobilinogen (NORMAL) E.U./dL Ur Leukocyte Esterase (NEGATIVE) Urine RBC (0-5) /HPF Urine WBC (0-3) /HPF Ur Squamous Epith Cells (<= Few) Urine Bacteria (None Seen) /HPF Urine Casts /LPF Ur Microscopic Review Urine Culture Comments Salicylates < 6.0 mg/dL Urine Opiates Screen (NEGATIVE) Ur Oxycodone Screen (NEGATIVE) Urine Methadone Screen (NEGATIVE) Ur Propoxyphene Screen (NEGATIVE) Ur Barbiturates Screen (NEGATIVE) Ur Tricyclics Screen (NEGATIVE) Ur Phencyclidine Scrn (NEGATIVE) Ur Amphetamine Screen (NEGATIVE) U Methamphetamines Scrn (NEGATIVE) U Benzodiazepines Scrn (NEGATIVE) Urine Cocaine Screen (NEGATIVE) U Cannabinoids Screen (NEGATIVE) Serum Ketones (NEGATIVE) 04/22/18 04/22/18 04/22/18 Range/Units 14:30 14:30 14:30 WBC 13.6 H (4.8-10.8) x10^3/uL RBC 5.38 (4.70-6.10) 10^6/uL Hgb 15.4 (14.0-18.0) g/dL Hct 49.2 (42.0-52.0) % MCV 91.5 (80.0-94.0) fL MCH 28.7 (27.0-31.0) pg MCHC 31.3 L (32.0-36.0) g/dL RDW 14.8 (12.0-15.0) % Plt Count 293 (130-450) 10^3/uL MPV 8.9 (7.4-11.4) fL Neut # (Auto) 11.8 H (1.5-6.6) 10^3/uL Lymph # (Auto) 0.6 L (1.5-3.5) 10^3/uL Esmeralda # (Auto) 0.9 (0.0-1.0) 10^3/uL Eos # (Auto) 0.0 (0.0-0.7) 10^3/uL Baso # (Auto) 0.2 H (0.0-0.1) 10^3/uL Absolute Nucleated RBC 0.00 x10^3/uL Band Neuts % (Manual) Not Reportable Abnorm Lymph % (Manual) Not Reportable Nucleated RBC % 0.0 /100WBC Neutrophils # (Manual) Not Reportable Lymphocytes # (Manual) Not Reportable Monocytes # (Manual) Not Reportable Eosinophils # (Manual) Not Reportable Basophils # (Manual) Not Reportable Differential Comment MANUAL=AUTO DIFF VBG pH (7.31-7.41) VBG pCO2 (41-51) mmHg VBG pO2 (25-47) mmHg VBG HCO3 (23-28) mmol/L VBG Total CO2 (24-29) mmol/L VBG O2 Saturation (60-80) % VBG Base Excess (-2 - +2) mmol/L Ionized Calcium (1.15-1.33) mmol/L Sodium 127 L (135-145) mmol/L Potassium 4.0 (3.5-5.0) mmol/L Chloride 103 (101-111) mmol/L Carbon Dioxide < 6 L* (21-32) mmol/L Anion Gap 18.0 H (6-13) BUN 17 (6-20) mg/dL Creatinine 1.1 (0.6-1.2) mg/dL Estimated GFR (MDRD) 75 L (>89) Glucose 413 H (70-100) mg/dL Glycated Hemoglobin (4.6-6.2) % Estim Average Glucose (70-100) Calcium 8.4 L (8.5-10.3) mg/dL Phosphorus (2.5-4.6) mg/dL Magnesium (1.7-2.8) mg/dL Total Bilirubin 1.9 H (0.2-1.0) mg/dL AST 16 (10-42) IU/L ALT 25 (10-60) IU/L Alkaline Phosphatase 160 H (42-121) IU/L Troponin I (<0.49) ng/mL Total Protein 7.4 (6.7-8.2) g/dL Albumin 4.3 (3.2-5.5) g/dL Globulin 3.1 (2.1-4.2) g/dL Albumin/Globulin Ratio 1.4 (1.0-2.2) Triglycerides ( - 149) mg/dL LDL Cholesterol Direct ( - 129) mg/dL dLDL/HDL Ratio Lipase 23 (22-51) U/L Urine Color Urine Clarity (CLEAR) Urine pH (5.0-7.5) PH Ur Specific [place] (1.002-1.030) Urine Protein (NEGATIVE) mg/dL Urine Glucose (UA) (NEGATIVE) mg/dL Urine Ketones (NEGATIVE) mg/dL Urine Occult Blood (NEGATIVE) Urine Nitrite (NEGATIVE) Urine Bilirubin (NEGATIVE) Urine Urobilinogen (NORMAL) E.U./dL Ur Leukocyte Esterase (NEGATIVE) Urine RBC (0-5) /HPF Urine WBC (0-3) /HPF Ur Squamous Epith Cells (<= Few) Urine Bacteria (None Seen) /HPF Urine Casts /LPF Ur Microscopic Review Urine Culture Comments Salicylates mg/dL Urine Opiates Screen (NEGATIVE) Ur Oxycodone Screen (NEGATIVE) Urine Methadone Screen (NEGATIVE) Ur Propoxyphene Screen (NEGATIVE) Ur Barbiturates Screen (NEGATIVE) Ur Tricyclics Screen (NEGATIVE) Ur Phencyclidine Scrn (NEGATIVE) Ur Amphetamine Screen (NEGATIVE) U Methamphetamines Scrn (NEGATIVE) U Benzodiazepines Scrn (NEGATIVE) Urine Cocaine Screen (NEGATIVE) U Cannabinoids Screen (NEGATIVE) Serum Ketones MODERATE H (NEGATIVE) Assessment/Plan - Problem List (1) DKA, type 2 Impression: Patient is a 37-year-old white male who is type 2 diabetes mellitus for 2 years, stopped using his insulin and has not seen his primary care provider over a year ago. Admitted with fatigue, nausea vomiting, and otitis media of the left ear. Found to be in DKA with a carbon dioxide level less than 6. He is now 11 this morning. Anion gap was 15 and now 10 this morning. Creatinine was 1 is now 0.8. Troponins have been less than 0.04. CBC was initially with a white cell count of 13.6 and is now 8.5. He received 4 L up until midnight of April 22. Since midnight into the horse trainer hours this morning, he is received another close to 4 L of fluid as well. Plan: Slowly improving carbon dioxide level, acid level. Transfer to floor status as opposed to ICU Continue to check labs including calcium magnesium phosphorus potassium 5 units of Lantus this morning with increased Lantus to 15 units at night Continue moderate sliding scale insulin Send Lantus prescription to [facility] to see how much it cost because he may have to pay for it out of pocket initially until his insurance kicks in Emphasized he will need to see his primary care provider and resume a relationship with [facility] Qualifiers: Diabetes mellitus terminal carman insulin use: without usp use Diabetes mellitus complication detail: without coma Qualified Code(s): E11.10 - Type 2 diabetes mellitus with ketoacidosis without coma (2) Uncontrolled type 2 diabetes mellitus with complication, without long-term current use of insulin Impression: Noncompliant with medication regime. Puzzling as to why he is not. He says he really does not have a good reason. He just sort of stopped going to his primary care provider and stopped taking his Lantus. He has no specific philosophy for or against. He just sort of drifted away from that. Plan: Had a long discussion with the long-term complications of diabetes that occur over 15-20 years of noncompliance. He is only had the disease for 2 years Emphasized need for regular follow-up of minimum every 4 months with the primary care provider (3) Otitis media Impression: Day #2 of p.o. Augmentin. Plan on 7-10 days. Make sure he is on probiotics Qualifiers: Otitis media type: suppurative Chronicity: acute Laterality: left Recurrence: not specified as recurrent Spontaneous tympanic membrane rupture: without spontaneous rupture Qualified Code(s): H66.002 - Acute suppurative otitis media without spontaneous rupture of ear drum, left ear
[2018-04-23] MEDS: SODIUM CHLORIDE FLUSH 0.9% 10 ML SYRINGE IVP SCH ×2 (08:24→17:42)
[2018-04-23] MEDS: AMOX/CLAV 875 MG/125 MG TABLET PO SCH ×2 (08:24→21:10)
[2018-04-23] MEDS: PANTOPRAZOLE 40 MG VIAL IVP SCH (08:24)
[2018-04-23] MEDS: NS W/20 MEQ KCL 1,000 ML IV SCH ×4 (10:01→22:09)
[2018-04-23] MEDS: INSULIN ASPART 300 UNIT/3 ML PEN SUBQ SCH ×3 (11:55→21:11)
[2018-04-23] MEDS: POLYETHYLENE GLYCOL 3350 17 GM PACKET PO SCH (11:59)
[2018-04-23] MEDS: SACCHAROMYCES BOULARDII 250 MG CAPSULE PO SCH (17:42)
[2018-04-23] MEDS ORDERED: INSULIN GLARGINE 300 UNIT/3 ML PEN SUBQ SCH (21:00)
[2018-04-24] MEDS: SODIUM CHLORIDE FLUSH 0.9% 10 ML SYRINGE IVP SCH ×2 (01:28→08:11)
[2018-04-24] MEDS: NS W/20 MEQ KCL 1,000 ML IV SCH ×3 (02:04→10:15)
[2018-04-24 05:04] LABS: BASOPHILS # (AUTO) 0.1 10^3/uL (0.0-0.1); BASOPHILS % (AUTO) 1.4 %; EOSINOPHILS % (AUTO) 0.4 %; HGB - HEMOGLOBIN 11.6 g/dL (14.0-18.0); LYMPHOCYTES # (AUTO) 1.6 10^3/uL (1.5-3.5); LYMPHOCYTES % (AUTO) 36.9 %; MEAN CORPUSCULAR HEMOGLOBIN 28.6 pg (27.0-31.0); MEAN CORPUSCULAR HGB CONC 33.8 g/dL (32.0-36.0); MEAN CORPUSCULAR VOLUME 84.6 fL (80.0-94.0); MEAN PLATELET VOLUME 8.5 fL (7.4-11.4); MONOCYTES # (AUTO) 0.6 10^3/uL (0.0-1.0); MONOCYTES % (AUTO) 13.6 %; NEUTROPHILS % (AUTO) 47.7 %; PLT - PLATELET COUNT 191 10^3/uL (130-450); RED BLOOD COUNT 4.04 10^6/uL (4.70-6.10); RED CELL DISTRIBUTION WIDTH 14.1 % (12.0-15.0); WHITE BLOOD COUNT 4.2 x10^3/uL (4.8-10.8)
[2018-04-24] MEDS ORDERED: ACETAMINOPHEN 325 MG TABLET PO PRN (05:04)
[2018-04-24 05:24] LABS: BUN - BLOOD UREA NITROGEN 8 mg/dL (6-20); CALCIUM 7.5 mg/dL (8.5-10.3); CARBON DIOXIDE - CO2 21 mmol/L (21-32); CHLORIDE 112 mmol/L (101-111); CREATININE 0.5 mg/dL (0.6-1.2); GFR - MDRD 186 (>89); GLUCOSE 217 mg/dL (70-100); MAGNESIUM 1.7 mg/dL (1.7-2.8); SODIUM 137 mmol/L (135-145)
[2018-04-24 05:25] LABS: PHOSPHORUS < 1.0 mg/dL (2.5-4.6)
[2018-04-24] MEDS ORDERED: POTASSIUM PHOSPHATE 21 MMOL in SODIUM CHLORIDE 0.9% 250 ML IV ONE (05:35)
[2018-04-24] MEDS ORDERED: CALCIUM GLUCONATE 1,000 MG in SODIUM CHLORIDE 0.9% 50 ML IV ONE (05:36)
[2018-04-24] MEDS ORDERED: MAGNESIUM SULFATE 2 GRAM 2 GM/50 ML BAG IV ONE (05:36)
[2018-04-24] MEDS ORDERED: POTASSIUM CHLORIDE 10 MEQ CAPSULE PO SCH (06:00)
[2018-04-24 08:03] VITALS: BP 115/81
[2018-04-24] MEDS: POLYETHYLENE GLYCOL 3350 17 GM PACKET PO SCH ×2 (08:03→08:11)
[2018-04-24] MEDS: SACCHAROMYCES BOULARDII 250 MG CAPSULE PO SCH (08:07)
[2018-04-24] MEDS: AMOX/CLAV 875 MG/125 MG TABLET PO SCH (08:07)
[2018-04-24] MEDS: NEUTRA-PHOS 250 MG TABLET PO SCH ×2 (08:07→11:59)
[2018-04-24] MEDS: INSULIN ASPART 300 UNIT/3 ML PEN SUBQ SCH ×2 (08:09→12:00)
[2018-04-24] MEDS ORDERED: DOCUSATE SODIUM 250 MG CAPSULE PO SCH (09:00)
[2018-04-24] MEDS ORDERED: SENNA 8.6 MG TABLET PO SCH (09:00)
--- NOTE | 2018-04-24 11:24 | DISCHARGE SUMMARY ---
"Discharge Summary Admit Date: 04/22/18 Discharge Date: 04/24/18 Discharging Provider: Marcelina Ramos MD Primary Care Provider: Jordan Hadley MD Code Status: Attempt Resuscitation Condition at Discharge: Stable Discharge Disposition: 01 Home, Self Care - DIAGNOSES Discharge Diagnoses with Status of Each Condition: 1. Type 2 diabetes with ketoacidosis, resolved 2. Type 2 diabetes, uncontrolled, with hyperglycemia, with complications, not on long-term use of insulin 3. Noncompliance with medical regime 4. Adjustment disorder of adult life 5. Dehydration 6. Electrolyte disorder 7. Left otitis media, suppurative - HPI History of Present Illness: He is a 37-year-old white male who has recently suffered the loss of mother, brother, grandparent, and has broken up with his girlfriend. He also quit his job 3 to half months ago to do a new job and has lost that job as well. He has diabetes, does not know what type, and used to be on metformin and insulin. Over a year ago, probably longer than that and closer to 2 years, he stopped his insulin. He is not seen a primary care provider in over a year. He had an appointment for diabetic education close to 2 years ago and never followed through. He now presents with several days of fatigue, shortness of breath with rapid respirations, nausea, vomiting, loss of weight, and poor appetite. In the emergency room he is found to be in DKA with a blood pressure of 150/90, heart rate 103, respirations 25, room air sat 100%. He had redness of the left tympanic membrane, very dry oral mucosa, cracked lips, poor dentition, dry blood on his lips and palate. He was lethargic but no focal motor deficits. Sodium was 127, potassium 4, BUN 17, creatinine 1.1, anion gap 18. Glucose 418. PH was 6.8. White cell count 30.6 with a left shift. Hemoglobin 15.4. Moderate serum ketones. High specific gravity on his urinalysis at 1.03 with high protein, high glucose, high ketones, rare white cells and no bacteria. - CONSULTS | PROCEDURES Consultations: Social Work Procedures: IV Insulin drip - HOSPITAL COURSE Hospital Course: The patient was started on insulin drip and transferred to the ICU. He received aggressive fluid resuscitation and his electrolytes for hypokalemia, hypophosphatemia, hypomagnesemia and hyponatremia were all treated. On the day of discharge, he received 60 mEq of potassium, potassium phosphate, and will need to go home on a few more days of potassium. He was able to come off the insulin drip once glucose drop below 200. He was then transitioned to Lantus and sliding scale before meals coverage. He seems to have lack of self- awareness about the severity of his illness. Lack of understanding about how often he supposed to check, and cover himself. He received a consult with social work, nutrition services, and he will need to follow-up with outpatient diabetic education. He seemed to have and anhedonic, passive sad facies. Social work spent quite a bit of time with him and he said quite a bit of losses over the last year to 2 years leading to probable adjustment disorder and depression. This in turn has led him to be noncompliant. We have strongly encouraged him to reestablish care with [facility]. His previous primary care provider was Dr. Hadley. He needs to follow-up with outpatient diabetic management. We have resumed Lantus and he will go home on Lantus 30 units at night. Sliding scale coverage with short acting insulin. He has been signed up for a new insurance plan and that is active now. He will be discharged on continued Augmentin to finish treatment for his otitis media. He will also finish 7 days of potassium phosphate to supplement both of those electrolytes in the outpatient setting. I would recommend that he get a CMP and include calcium, magnesium, phosphorus. - ALLERGIES Allergies/Adverse Reactions: Allergies Allergy/AdvReac Type Severity Reaction Status Date / Time peanut Allergy Anaphylaxis Verified 04/22/18 14:25 - MEDICATIONS Home Medications: Ambulatory Orders Medication Instructions Recorded Confirmed Lisinopril 2.5 mg PO DAILY 04/22/18 04/23/18 Albuterol Sulfate [Proair Hfa 1 - 2 puffs INH Q4H PRN 04/23/18 04/23/18 Inhaler] Beclomethasone Dipropionate [Qvar 2 puffs INH BID 04/23/18 04/23/18 Redihaler (80 mcg)] Amox/Clav 875/125 [Augmentin] 1 each PO Q12H #16 tablet 04/24/18 Blood-Glucose Meter [Glucometer] 1 each MC DAILY #1 each 04/24/18 Insulin Aspart [NovoLOG] 10 unit SUBQ 0800,1200,1700,2100 04/24/18 #3 pen Insulin Glargine [Lantus Solostar] 30 unit SUBQ QPM #4 pen 04/24/18 Lancets/Blood Glucose Strips [Fora 1 each MC TIDWM #100 combo..pkg 04/24/18 [id number] Strp-Lnct] [place], Disposable [Needle] 1 each MC TIDWM #200 dis.needle 04/24/18 Neutra-Phos [K-Phos Neutral] 250 mg PO TIDWM #21 tablet 04/24/18 - PHYSICAL EXAM AT DISCHARGE General Appearance: positive: No acute distress, Alert, Other (Slender, alert young white male) Eyes Bilateral: positive: PERRL ENT: positive: Pharynx nml Neck: positive: No JVD. negative: Stiff neck, Carotid bruit Respiratory: positive: Chest non-tender. negative: Wheezes, Rales, Rhonchi Cardiovascular: positive: Regular rate & rhythm. negative: Gallop/S4, Friction rub Peripheral Pulses: positive: 1+ Abdomen: positive: Non-tender, No organomegaly, Nml bowel sounds, No distention Skin: positive: Warm, Dry, Pallor Extremities: positive: Non-tender, No pedal edema Neurologic/Psychiatric: positive: Oriented x3, CN's nml (2-12), Motor nml - LABS Result Diagrams: 04/24/18 04:50 04/24/18 04:50"
--- NOTE | 2018-04-24 12:36 | Discharge Plan ---
Discharge Plan Disposition: Home, Self Care Condition: Stable Prescriptions: Amox/Clav 875/125 [Augmentin] 1 each PO Q12H #16 tablet Blood-Glucose Meter [Glucometer] 1 each MC DAILY #1 each Insulin Aspart [NovoLOG] 10 unit SUBQ 0800,1200,1700,2100 #3 pen Insulin Glargine [Lantus Solostar] 30 unit SUBQ QPM #4 pen Lancets/Blood Glucose Strips [Fora [id number] Strp-Lnct] 1 each MC TIDWM #100 combo..pkg [place], Disposable [Needle] 1 each MC TIDWM #200 dis.needle Neutra-Phos [K-Phos Neutral] 250 mg PO TIDWM #21 tablet Diet: Diabetic Activity Restrictions: Activity as Tolerated Shower Restrictions: No Driving Restrictions: No Additional Instructions or Follow Up instructions: You were admitted to the hospital with nausea, fast heart rate, weakness. You had not taken your insulin for over a year, possibly 2 years. We also investigated and found that you would not been to diabetic education as instructed 2 years ago. As such, the diagnosis was that of diabetic ketoacidosis. Your glucose had gotten so high in your body that you were now starting to produce acid. You are in danger of slipping into a coma. Your fast breathing was because your lungs were trying to blow off the acid in your body. You required an insulin drip, and many, many supplementations of potassium, magnesium, phosphorus. You are now going to be sent home with a new Lantus prescription. It is 30 units at night. If your glucose in the morning, fasting, is greater than 120, increase that night Lantus by 2 units. For example, if your glucose is 180 that morning, increase lantus to 32 units that night. Aim for a goal of less than 125 glucose in the morning. Once you achieve that goal, you can stop increasing your Lantus. You were also going to be sent home on NovoLog pen. You are to take a sliding scale depending on her carbohydrate intake, and your glucose level before meals. You were also being sent home with Augmentin. You have a left ear infection and need to complete therapy for that. While you are taking the antibiotic we strongly recommend that you take an [id number] probiotic twice a day to avoid diarrhea, stomach upset, and for overall bowel health. Please keep an appointment with diabetic education associate. We have made that referral. Please reestablish yourself with your primary care provider at the [facility]. In trying to figure out what was going on with you, we realized that you most likely have had a emotional response to all the stress you have had in your life in the last few years. You have lost family members, and lost a job, and it is been quite an adjustment for you. When you see your primary care provider, consider going on medication for an adjustment disorder with depression. No Smoking: If you smoke, Please STOP! Call for help.
== END 2018-04-24 15:00 | disposition home or self-care (01) | DRG 638 ==
LOC: EDUNIT# → ED 14:13 → ICU 17:45 → MS2 04-23 10:29
PROVIDERS: ADMIT Internal Medicine; ATTEND Specialist
DX: E11.10 Type 2 diabetes mellitus with ketoacidosis without coma (principal); E87.1 Hypo-osmolality and hyponatremia; T38.3X6A Underdosing of insulin and oral hypoglycemic [antidiabetic] drugs, initial encounter; F43.20 Adjustment disorder, unspecified; E86.0 Dehydration; H66.42 Suppurative otitis media, unspecified, left ear; E87.6 Hypokalemia; E83.39 Other disorders of phosphorus metabolism; E83.42 Hypomagnesemia; Z79.84 Long term (current) use of oral hypoglycemic drugs
CPT/HCPCS: 36415; 80048; 80053; 80306; 80329; 81001; 81003; 82009; 82040; 82330; 82803; 82947; 83036; 83690; 83721; 83735; 84100; 84478; 84484; 85025; 87086; 87150; 96361; 96365; 99284; 99285

== ENCOUNTER 2018-05-01 08:00 | Outpatient (CLI) | payer MEDICAID ==
[2018-05-01 19:34] LABS: ALBUMIN 3.6 g/dL (3.2-5.5); ALBUMIN/GLOBULIN RATIO 1.3 (1.0-2.2); BILIRUBIN,TOTAL 0.4 mg/dL (0.2-1.0); CALCIUM 8.6 mg/dL (8.5-10.3); CREATININE 0.6 mg/dL (0.6-1.2); PHOSPHORUS 2.9 mg/dL (2.5-4.6); TOTAL PROTEIN 6.3 g/dL (6.7-8.2)
== END 2018-05-01 23:59 | disposition home or self-care (01) ==
LOC: LAB.N 08:00
PROVIDERS: ATTEND Family Medicine
DX: E83.39 Other disorders of phosphorus metabolism (principal); E83.42 Hypomagnesemia; E87.1 Hypo-osmolality and hyponatremia; E11.65 Type 2 diabetes mellitus with hyperglycemia
CPT/HCPCS: 36415; 80053; 83735; 84100

== ENCOUNTER 2019-06-05 08:00 | Outpatient (CLI) | payer MEDICAID ==
[2019-06-05 12:29] LABS: BASOPHILS % (AUTO) 0.6 %; EOSINOPHILS # (AUTO) 0.2 10^3/uL (0.0-0.7); EOSINOPHILS % (AUTO) 3.8 %; LYMPHOCYTES # (AUTO) 1.7 10^3/uL (1.5-3.5); LYMPHOCYTES % (AUTO) 33.1 %; MEAN CORPUSCULAR HEMOGLOBIN 27.4 pg (27.0-31.0); MEAN CORPUSCULAR HGB CONC 32.1 g/dL (32.0-36.0); MEAN CORPUSCULAR VOLUME 85.6 fL (80.0-94.0); MEAN PLATELET VOLUME 10.3 fL (7.4-11.4); MONOCYTES # (AUTO) 0.5 10^3/uL (0.0-1.0); MONOCYTES % (AUTO) 9.7 %; NEUTROPHILS # (AUTO) 2.8 10^3/uL (1.5-6.6); NEUTROPHILS % (AUTO) 52.8 %; PLT - PLATELET COUNT 390 10^3/uL (130-450); RED BLOOD COUNT 5.47 10^6/uL (4.70-6.10); RED CELL DISTRIBUTION WIDTH 13.4 % (12.0-15.0); WHITE BLOOD COUNT 5.3 x10^3/uL (4.8-10.8)
[2019-06-05 13:19] LABS: ALBUMIN 4.2 g/dL (3.2-5.5); ALBUMIN/GLOBULIN RATIO 1.5 (1.0-2.2); ALKALINE PHOSPHATASE 72 IU/L (42-121); ALT ALANINE AMINOTRANSFERASE 25 IU/L (10-60); AST ASPARTATE AMINOTRANSFERASE 16 IU/L (10-42); BILIRUBIN,TOTAL 0.7 mg/dL (0.2-1.0); BUN - BLOOD UREA NITROGEN 24 mg/dL (6-20); CARBON DIOXIDE - CO2 29 mmol/L (21-32); CHLORIDE 101 mmol/L (101-111); CHOL/HDL RATIO 2.9 (<5.0); CHOLESTEROL 150 mg/dL; CREATININE 0.9 mg/dL (0.6-1.2); GFR - MDRD 94 (>89); GLUCOSE 142 mg/dL (70-100); HDL CHOLESTEROL 52 mg/dL; LDL CHOLESTEROL,CALCULATED 87 mg/dL; LDL/HDL RATIO 1.7 (<3.6); SODIUM 139 mmol/L (135-145); VLDL CHOLESTEROL 11 mg/dL
[2019-06-05 14:21] LABS: HEMOGLOBIN A1C 1.17 g/dL; HEMOGLOBIN A1C % 9.3 % (4.6-6.2)
== END 2019-06-05 23:59 | disposition home or self-care (01) ==
LOC: LAB.N 08:00
PROVIDERS: ATTEND Physician Assistant Medical
DX: I10 Essential (primary) hypertension (principal); E78.5 Hyperlipidemia, unspecified; E11.9 Type 2 diabetes mellitus without complications
CPT/HCPCS: 36415; 80053; 80061; 83036; 83721; 85025

== ENCOUNTER 2019-10-01 10:34 | Emergency (ER) | payer OTHER, MEDICAID ==
[2019-10-01 10:47] VITALS: BP 143/82
--- NOTE | 2019-10-01 12:00 | ED Physician Documentation ---
PD HPI LOWER EXT INJURY - Chief complaint Chief Complaint: Trauma Ext - Additional information Additional information: Patient comes emergency department complaining of right great toe pain that started a few days ago when he his toe collided with a cart at work. Patient states that he had some pain at the time but it was not too bad until today, when he noticed a blister on the medial aspect of his toenail. Patient states that it feels tight and painful there. Patient has not noticed any increasing redness of the area. Minimal edema. No fevers or chills. Patient is a diabetic. He does state that he has been wearing ill fitting shoes, which may be contributing. No other complaints at this time. Review of Systems Ten Systems: 10 systems reviewed and negative Constitutional: reports: Reviewed and negative Eyes: reports: Reviewed and negative Ears: reports: Reviewed and negative Nose: reports: Reviewed and negative Throat: reports: Reviewed and negative Cardiac: reports: Reviewed and negative Respiratory: reports: Reviewed and negative GI: reports: Reviewed and negative : reports: Reviewed and negative Skin: reports: Reviewed and negative Musculoskeletal: reports: Pain with weight bearing, Other (Toe pain) Neurologic: reports: Reviewed and negative Psychiatric: reports: Reviewed and negative Endocrine: reports: Reviewed and negative Immunocompromised: reports: Reviewed and negative PD PAST MEDICAL HISTORY - Past Medical History Past Medical History: Yes Cardiovascular: None Respiratory: Asthma Neuro: None Endocrine/Autoimmune: Type 2 diabetes GI: None : None HEENT: None Psych: Anxiety Musculoskeletal: Other - Past Surgical History Past Surgical History: No - Present Medications Home Medications: Ambulatory Orders Medication Instructions Recorded Confirmed lisinopriL [Lisinopril] 2.5 mg PO DAILY 04/22/18 04/23/18 Albuterol Sulfate [Proair Hfa 1 - 2 puffs INH Q4H PRN 04/23/18 04/23/18 Inhaler] Beclomethasone Dipropionate [Qvar 2 puffs INH BID 04/23/18 04/23/18 Redihaler (80 mcg)] Amox/Clav 875/125 [Augmentin] 1 each PO Q12H #16 tablet 04/24/18 Blood-Glucose Meter [Glucometer] 1 each MC DAILY #1 each 04/24/18 Insulin Aspart [NovoLOG] 10 unit SUBQ 0800,1200,1700,2100 04/24/18 #3 pen Insulin Glargine [Lantus Solostar] 30 unit SUBQ QPM #4 pen 04/24/18 Lancets/Blood Glucose Strips [Fora 1 each MC TIDWM #100 combo..pkg 04/24/18 [id number] Strp-Lnct] [place], Disposable [Needle] 1 each MC TIDWM #200 dis.needle 04/24/18 Neutra-Phos [K-Phos Neutral] 250 mg PO TIDWM #21 tablet 04/24/18 - Allergies Allergies/Adverse Reactions: Allergies Allergy/AdvReac Type Severity Reaction Status Date / Time peanut Allergy Anaphylaxis Verified 10/01/19 10:47 - Social History Does the pt smoke?: No Smoking Status: Never smoker Does the pt drink ETOH?: No Does the pt have substance abuse?: No - Immunizations Immunizations are current?: Yes - POLST Patient has POLST: No PD ED PE NORMAL - Vitals Vital signs reviewed: Yes - General General: Alert and oriented X 3, No acute distress, Well developed/nourished - HEENT HEENT: Atraumatic, PERRL, EOMI, Moist mucous membranes - Neck Neck: Supple, no meningeal sign - Cardiac Cardiac: Strong equal pulses - Respiratory Respiratory: No respiratory distress - Derm Derm: Warm and dry, Other (Mild reddish-purple erythema immediately surrounding the patient's right great toenail in the medial and proximal portions of the paronychial tissue. 4 mm diameter bulla present filled with clear fluid. No erythematous streaking. No edema of the toe. No subungual hematoma. No contusion.) - Extremities Extremities: No deformity, No edema, Other (No right great toe deformity) - Neuro Neuro: Alert and oriented X 3, Other (Grossly normal) - Psych Psych: Normal mood, Normal affect Results - Vitals Vitals: Vital Signs - 24 hr 10/01/19 10:44 Temperature 36.2 C L Heart Rate 92 Respiratory 16 Rate Blood Pressure 143/82 H O2 Saturation 100 Oxygen O2 Source Room air - Rads (name of study) Right toes x-ray series Radiology: Final report received, EMP read indepedently, See rad report (No acute findings.) PD MEDICAL DECISION MAKING - ED course Complexity details: reviewed results, re-evaluated patient, considered differential, d/w patient ED course: Patient was evaluated in the emergency department with an x-ray of the toe, which was found to be negative. I discussed with the patient that most likely, the blistered area is causing his pain. Patient is a diabetic, and although he does not have any signs of infection now, he is advised to keep an eye on the area to make sure he is not developing infection. We have discussed application of heat to help encourage drainage, and that the patient should not try to joan the bulla by inserting a needle. We discussed ice to help with any pain. We have also discussed the importance of properly fitting shoes, especially in consideration the patient's diabetes and potential for foot infections, even with minor trauma. Departure - Departure Disposition: 01 Home, Self Care Clinical Impression: Toe injury Qualifiers: Encounter type: initial encounter Laterality: right Qualified Code(s): S99.921A - Unspecified injury of right foot, initial encounter Blister of toe Qualifiers: Encounter type: initial encounter Laterality: right Qualified Code(s): S90.424A - Blister (nonthermal), right lesser toe(s), initial encounter Condition: Stable Instructions: ED Blister Discharge Date/Time: 10/01/19 12:16
--- NOTE | 2019-10-01 12:10 | XRAY Report ---
Reason: blunt trauma, pain Procedure Date: 10/01/2019 Accession Number: [id number] / [id number] Procedure: XR - Toe(s) RT CPT Code: Final Report FULL RESULT: EXAM: RIGHT TOE RADIOGRAPHY EXAM DATE: 10/01/2019 11:20 AM. CLINICAL HISTORY: Right toe pain. COMPARISON: None. TECHNIQUE: 3 views. FINDINGS: Bones: Normal. No fracture or bone lesion. Joints: Normal. No subluxations. Soft Tissues: Normal. No soft tissue swelling. IMPRESSION: Normal toe radiography. [facility]
== END 2019-10-01 12:16 | disposition home or self-care (01) ==
LOC: ED 10:34
DX: S90.424A Blister (nonthermal), right lesser toe(s), initial encounter (principal); S99.921A Unspecified injury of right foot, initial encounter; W22.8XXA Striking against or struck by other objects, initial encounter; Y92.89 Other specified places as the place of occurrence of the external cause; Y99.0 Civilian activity done for income or pay; E11.9 Type 2 diabetes mellitus without complications; Z79.4 Long term (current) use of insulin
CPT/HCPCS: 73660; 99283; 99284

== ENCOUNTER 2021-09-06 09:26 | Outpatient (CLI) | payer OTHER ==
[2021-09-06 15:22] LABS: THYROID STIMULATING HORMONE 1.34 uIU/mL (0.34-5.60)
[2021-09-06 15:33] LABS: ALBUMIN 4.2 g/dL (3.2-5.5); ALBUMIN/GLOBULIN RATIO 1.8 (1.0-2.2); ALKALINE PHOSPHATASE 67 IU/L (42-121); ALT ALANINE AMINOTRANSFERASE 29 IU/L (10-60); AST ASPARTATE AMINOTRANSFERASE 21 IU/L (10-42); BILIRUBIN,TOTAL 0.7 mg/dL (0.2-1.0); BUN - BLOOD UREA NITROGEN 14 mg/dL (6-20); CALCIUM 9.5 mg/dL (8.5-10.3); CARBON DIOXIDE - CO2 27 mmol/L (21-32); CHLORIDE 98 mmol/L (101-111); CHOL/HDL RATIO 2.8 (<5.0); CHOLESTEROL 188 mg/dL; CREATININE 0.8 mg/dL (0.6-1.2); GFR - MDRD 107 (>89); GLUCOSE 256 mg/dL (70-100); HDL CHOLESTEROL 67 mg/dL; LDL CHOLESTEROL,CALCULATED 112 mg/dL; LDL/HDL RATIO 1.7 (<3.6); POTASSIUM 4.2 mmol/L (3.5-5.0); SODIUM 133 mmol/L (135-145); TOTAL PROTEIN 6.6 g/dL (6.7-8.2); TRIGLYCERIDES 44 mg/dL; VLDL CHOLESTEROL 9 mg/dL
[2021-09-06 16:48] LABS: BASOPHILS % (AUTO) 0.7 %; EOSINOPHILS # (AUTO) 0.3 10^3/uL (0.0-0.7); EOSINOPHILS % (AUTO) 4.5 %; HCT - HEMATOCRIT 46.6 % (42.0-52.0); HGB - HEMOGLOBIN 15.1 g/dL (14.0-18.0); LYMPHOCYTES # (AUTO) 1.5 10^3/uL (1.5-3.5); LYMPHOCYTES % (AUTO) 24.7 %; MEAN CORPUSCULAR HGB CONC 32.4 g/dL (32.0-36.0); MEAN CORPUSCULAR VOLUME 83.2 fL (80.0-94.0); MEAN PLATELET VOLUME 10.9 fL (7.4-11.4); MONOCYTES # (AUTO) 0.4 10^3/uL (0.0-1.0); MONOCYTES % (AUTO) 6.6 %; NEUTROPHILS # (AUTO) 3.8 10^3/uL (1.5-6.6); NEUTROPHILS % (AUTO) 63.3 %; PLT - PLATELET COUNT 333 10^3/uL (130-450); RED CELL DISTRIBUTION WIDTH 13.5 % (12.0-15.0)
[2021-09-06 20:44] LABS: ESTIMATED AVERAGE GLUCOSE 278 mg/dL (70-100); HEMOGLOBIN A1c% 11.3 % (4.27-6.07)
== END 2021-09-06 09:27 | disposition home or self-care (01) ==
LOC: LAB.S 09:26
PROVIDERS: ATTEND Registered Nurse
DX: E11.8 Type 2 diabetes mellitus with unspecified complications (principal); Z79.4 Long term (current) use of insulin
CPT/HCPCS: 36415; 80053; 80061; 82043; 82570; 83036; 83721; 84443; 85025

== ENCOUNTER 2022-12-04 11:53 | Outpatient (CLI) | payer OTHER ==
[2022-12-04 15:13] LABS: BASOPHILS % (AUTO) 0.7 %; EOSINOPHILS # (AUTO) 0.2 10^3/uL (0.0-0.7); EOSINOPHILS % (AUTO) 3.4 %; HCT - HEMATOCRIT 43.2 % (42.0-52.0); HGB - HEMOGLOBIN 13.6 g/dL (14.0-18.0); LYMPHOCYTES # (AUTO) 1.6 10^3/uL (1.5-3.5); LYMPHOCYTES % (AUTO) 28.6 %; MEAN CORPUSCULAR HEMOGLOBIN 26.5 pg (27.0-31.0); MEAN CORPUSCULAR HGB CONC 31.5 g/dL (32.0-36.0); MEAN CORPUSCULAR VOLUME 84.2 fL (80.0-94.0); MEAN PLATELET VOLUME 11.2 fL (7.4-11.4); MONOCYTES # (AUTO) 0.3 10^3/uL (0.0-1.0); MONOCYTES % (AUTO) 5.8 %; NEUTROPHILS # (AUTO) 3.4 10^3/uL (1.5-6.6); NEUTROPHILS % (AUTO) 61.3 %; PLT - PLATELET COUNT 316 10^3/uL (130-450); RED BLOOD COUNT 5.13 10^6/uL (4.70-6.10); RED CELL DISTRIBUTION WIDTH 12.6 % (12.0-15.0); WHITE BLOOD COUNT 5.5 x10^3/uL (4.8-10.8)
[2022-12-04 15:34] LABS: CREATININE,URINE 67.2 mg/dL; MICROALBUM/CREATININE RATIO,UR 40.2 ug/mg (<30.0); MICROALBUMIN,URINE 2.7 mg/dL
[2022-12-04 15:48] LABS: ALBUMIN 4.4 g/dL (3.2-5.5); ALBUMIN/GLOBULIN RATIO 1.8 (1.0-2.2); ALKALINE PHOSPHATASE 126 IU/L (42-121); ALT ALANINE AMINOTRANSFERASE 28 IU/L (10-60); AST ASPARTATE AMINOTRANSFERASE 22 IU/L (10-42); BILIRUBIN,TOTAL 0.7 mg/dL (0.2-1.0); BUN - BLOOD UREA NITROGEN 13 mg/dL (6-20); CALCIUM 9.4 mg/dL (8.5-10.3); CARBON DIOXIDE - CO2 30 mmol/L (21-32); CHLORIDE 99 mmol/L (101-111); CHOL/HDL RATIO 3.1 (<5.0); CHOLESTEROL 180 mg/dL; CREATININE 0.8 mg/dL (0.6-1.3); GFR - MDRD 106 (>89); GLUCOSE 378 mg/dL (74-104); HDL CHOLESTEROL 58 mg/dL; LDL CHOLESTEROL,CALCULATED 112 mg/dL; LDL/HDL RATIO 1.9 (<3.6); SODIUM 134 mmol/L (135-145); TOTAL PROTEIN 6.8 g/dL (6.4-8.9); TRIGLYCERIDES 51 mg/dL (48-352); VLDL CHOLESTEROL 10 mg/dL
[2022-12-04 15:52] LABS: THYROID STIMULATING HORMONE 1.05 uIU/mL (0.34-5.60)
[2022-12-04 18:31] LABS: ESTIMATED AVERAGE GLUCOSE 390 mg/dL (70-100); HEMOGLOBIN A1c% 15.2 % (4.27-6.07)
== END 2022-12-04 11:54 | disposition home or self-care (01) ==
LOC: LAB.S 11:53
PROVIDERS: ATTEND Registered Nurse
DX: I10 Essential (primary) hypertension (principal); E11.9 Type 2 diabetes mellitus without complications; E78.5 Hyperlipidemia, unspecified
CPT/HCPCS: 36415; 80053; 80061; 82043; 82570; 83036; 83721; 84443; 85025

== ENCOUNTER 2023-11-04 13:24 | Outpatient (CLI) | payer OTHER | END 2023-11-04 23:59 | disposition critical access hospital (66) | LOC: EMS 13:24 | DX: S01.112A Laceration without foreign body of left eyelid and periocular area, initial encounter (principal); R41.0 Disorientation, unspecified; V18.4XXA Pedal cycle driver injured in noncollision transport accident in traffic accident, initial encounter; Y93.55 Activity, bike riding; Y92.481 Parking lot as the place of occurrence of the external cause; E11.65 Type 2 diabetes mellitus with hyperglycemia; Z79.4 Long term (current) use of insulin | CPT/HCPCS: A0425; A0427 ==

== ENCOUNTER 2023-11-04 13:47 | Emergency (ER) | payer OTHER ==
[2023-11-04] MEDS ORDERED: TETANUS/DIPHTHERIA/PERTUSSIS 0.5 ML SYRINGE IM ONE (14:04)
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
[2023-11-04 14:26] LABS: BASOPHILS # (AUTO) 0.1 10^3/uL (0.0-0.1); EOSINOPHILS # (AUTO) 0.4 10^3/uL (0.0-0.7); EOSINOPHILS % (AUTO) 7.1 %; HCT - HEMATOCRIT 41.1 % (42.0-52.0); LYMPHOCYTES # (AUTO) 1.4 10^3/uL (1.5-3.5); LYMPHOCYTES % (AUTO) 24.5 %; MEAN CORPUSCULAR HEMOGLOBIN 26.2 pg (27.0-31.0); MEAN CORPUSCULAR HGB CONC 31.6 g/dL (32.0-36.0); MEAN CORPUSCULAR VOLUME 82.7 fL (80.0-94.0); MEAN PLATELET VOLUME 10.5 fL (7.4-11.4); MONOCYTES # (AUTO) 0.4 10^3/uL (0.0-1.0); MONOCYTES % (AUTO) 6.3 %; NEUTROPHILS # (AUTO) 3.6 10^3/uL (1.5-6.6); NEUTROPHILS % (AUTO) 60.9 %; PLT - PLATELET COUNT 310 10^3/uL (130-450); RED BLOOD COUNT 4.97 10^6/uL (4.70-6.10); WHITE BLOOD COUNT 5.9 x10^3/uL (4.8-10.8)
[2023-11-04 14:27] LABS: VBG PCO2 40.7 mmHg (41-51); VBG PH 7.391 (7.31-7.41); VBG PO2 59.5 mmHg (25-47)
[2023-11-04 14:28] LABS: VBG BASE EXCESS -0.7 mmol/L (-2 - +2); VBG HCO3 24.1 mmol/L (23-28); VBG OXYGEN SATURATION 91.7 % (60-80); VBG TOTAL CO2 25.4 mmol/L (24-29)
[2023-11-04 14:45] LABS: ALBUMIN 4.1 g/dL (3.2-5.5); ALBUMIN/GLOBULIN RATIO 2.2 (1.0-2.2); ALKALINE PHOSPHATASE 108 IU/L (42-121); ALT ALANINE AMINOTRANSFERASE 24 IU/L (10-60); AST ASPARTATE AMINOTRANSFERASE 19 IU/L (10-42); BILIRUBIN,TOTAL 0.4 mg/dL (0.2-1.0); BUN - BLOOD UREA NITROGEN 18 mg/dL (6-20); CALCIUM 8.9 mg/dL (8.5-10.3); CARBON DIOXIDE - CO2 28 mmol/L (21-32); CHLORIDE 102 mmol/L (101-111); CREATININE 0.9 mg/dL (0.6-1.3); GFR - MDRD 92 (>89); GLUCOSE 384 mg/dL (74-104); LIPASE 33 U/L (11-82); POTASSIUM 3.9 mmol/L (3.5-4.5); SODIUM 135 mmol/L (135-145)
[2023-11-04 14:52] LABS: KETONES, SERUM (ACETEST) NEGATIVE (NEGATIVE)
[2023-11-04] MEDS: TETANUS/DIPHTHERIA/PERTUSSIS 0.5 ML SYRINGE IM ONE (15:42)
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
[2023-11-04] MEDS: INSULIN REGULAR, HUMAN 300 UNIT/3 ML PEN SUBQ STA (16:00)
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
[2023-11-04] MEDS: cephALEXin 250 MG CAPSULE PO STA (16:22)
[2023-11-04 16:27] VITALS: BP 159/87; O2SAT 100
== END 2023-11-04 16:41 | disposition home or self-care (01) ==
LOC: EDUNIT# → ED 13:47
DX: S01.81XA Laceration without foreign body of other part of head, initial encounter (principal); S00.83XA Contusion of other part of head, initial encounter; S60.222A Contusion of left hand, initial encounter; V19.9XXA Pedal cyclist (driver) (passenger) injured in unspecified traffic accident, initial encounter; Y93.55 Activity, bike riding; E11.9 Type 2 diabetes mellitus without complications; T38.3X6A Underdosing of insulin and oral hypoglycemic [antidiabetic] drugs, initial encounter; Z91.148 Patient's other noncompliance with medication regimen for other reason; Z79.4 Long term (current) use of insulin; Z23 Encounter for immunization
CPT/HCPCS: 12002; 36415; 70450; 72125; 73130; 80053; 82009; 82803; 83690; 85025; 90471; 90715; 99284; A9270